=== PATIENT | male | born 1955 | race Caucasian/White ===

== ENCOUNTER 2019-12-16 00:52 | Day surgery (SDC) | payer MEDICARE, SELFPAY ==
[2019-12-04 14:25] VITALS: BMI 36.6
[2019-12-16 07:25] VITALS: BP 140/71; PULSE 102; RESP 18; TEMP 36.1; O2SAT 98
[2019-12-16 07:26] LABS: Glucose Point of Care 133 (65-105)
--- NOTE | 2019-12-16 07:28 | WPDANESEPPF ---
Anes - Initial Pre Proc Eval Procedure: Operation Date: 12/16/19 08:30 Proposed Procedures p Screening Colonoscopy - Sadiq Julio MD Date/Time: 12/16/19 07:28 Surgeon: Sadiq Julio MD Pre Op Diagnosis: Neoplasm Screening Patient Data Age: 64 Gender: M Height: 1.96 m Weight: 141.7 kg Last Vital Signs Temp 36.1 C L 12/16/19 07:25 Pulse 102 H 12/16/19 07:25 Resp 18 12/16/19 07:25 BP 140/71 12/16/19 07:25 Pulse Ox 98 12/16/19 07:25 Allergies Allergy/AdvReac Type Severity Reaction Status Date / Time Penicillins Allergy Unknown Rash Verified 12/04/19 14:14 Home Medications Medication Instructions Recorded Confirmed Type exenatide microspheres 2 mg SUBCUT Q7D 09/02/19 12/04/19 History glimepiride 2 mg PO QID 09/02/19 12/04/19 History lorazepam 0.5 mg PO DAILY PRN 09/02/19 12/04/19 History metformin 2,000 mg PO DAILY 09/02/19 12/04/19 History ondansetron 8 mg PO Q6H PRN 09/02/19 12/04/19 History sitagliptin 100 mg PO DAILY 09/02/19 12/04/19 History rosuvastatin 20 mg tablet 20 mg PO DAILY #90 tablet 09/23/19 12/04/19 Rx cyclobenzaprine 10 mg tablet 10 mg PO TID PRN #90 tablet 10/07/19 12/04/19 Rx metoprolol succinate 25 mg 25 mg PO DAILY #90 tablet 11/11/19 12/04/19 Rx tablet,extended release 24 hr levothyroxine 25 mcg tablet 25 mcg PO DAILY #90 tablet 12/01/19 12/04/19 Rx peg 3350-electrolytes 236 240 ml PO Q10M #4000 ml 12/12/19 Rx gram-22.74 gram-6.74 gram-5.86 gram solution Laboratory Tests 12/16/19 07:24 POC Capillary Glucose 133 mg/dl H mg/dl (65-105) Patient hx anesthesia problems: none Family hx anesthesia problems: none PMFSH Past Medical History Medical History (Updated 12/16/19 @ 07:30 by Mulugeta Parikh MD) Anxiety Diabetes HTN (hypertension) Hypothyroidism Lymphoma, small lymphocytic non hodgkiins lymphoma dx 12/2018 Obesity Family History Family History (Updated 12/13/18 @ 09:06 by DOCTOR UNKNOWN) Mother Hypertension Father Family history of cardiovascular disease Grandparent Acute myocardial infarction Other Diabetes mellitus Social History Social History Smoking status: Never smoker Alcohol intake: current Anes - Eval Final PreProcedure Day of Procedure 12/16/19 07:28 Patient weight: obese Heart: regular rate and rhythm Lungs: clear to auscultation and normal air movement Airway: Mallampati scale class II Neurological: alert and oriented Last oral intake: >/= 8 hours ASA classification: III Emergent: no Anesthetic plan: proceed Anesthesia type and monitoring: general GIVS Informed Consent: The patient's anesthetic plan and its attendant risks and benefits were discussed with the patient/family/POA. Questions were solicited and answers provided to the satisfaction of the patient/family/POA.
[2019-12-16] MEDS: LACTATED RINGERS 1,000 ML 150 ML IV CONT (07:53)
--- NOTE | 2019-12-16 08:42 | PM.HPGS ---
History of Present Illness History of Present Illness Consent: Risks, benefits, and alternatives have been discussed and questions answered. Patient agrees to proceed with procedure. Chief complaint: Neoplasm Screening Narrative: Hunter Stone is a 64 year old male with history of polyps, last colonoscopy 6 years ago Review of Systems Constitutional: Constitutional: Denies headache(s) and Denies weakness Eyes: Eyes: Denies blurry vision ENT: Reports Normal hearing present, Denies headache(s) and Denies neck pain Cardiovascular: Cardiovascular: Denies chest pain and Denies dyspnea Respiratory: Respiratory: Denies dyspnea Gastrointestinal: Gastrointestinal: Reports no additional gastrointestinal complaints Genitourinary: Genitourinary: Denies dysuria Musculoskeletal: Musculoskeletal: Denies neck pain Integumentary/Breasts: Skin/Breast: Denies dry skin Neurologic: Reports Normal hearing present, Denies headache(s) and Denies weakness Psychiatric: Psychiatric: Denies anxiety Endocrine: Endocrine: Denies change in body appearance Hematologic/Lymphatic: Hematologic/Lymphatic: Denies easy bleeding Allergic/Immunologic: Allergic/Immunologic: Denies urticaria PMFSH Past Medical History Medical History (Updated 12/16/19 @ 08:43 by Sadiq Julio MD) Adenomatous colon polyp Anxiety Diabetes HTN (hypertension) Hypothyroidism Lymphoma, small lymphocytic non hodgkiins lymphoma dx 12/2018 Obesity Family History Family History (Updated 12/13/18 @ 09:06 by DOCTOR UNKNOWN) Mother Hypertension Father Family history of cardiovascular disease Grandparent Acute myocardial infarction Other Diabetes mellitus Social History Social History Smoking status: Never smoker Alcohol intake: current Meds Home Medications and Allergies Home Medications Medication Instructions Recorded Confirmed Type exenatide microspheres 2 mg SUBCUT Q7D 09/02/19 12/16/19 History glimepiride 2 mg PO QID 09/02/19 12/04/19 History lorazepam 0.5 mg PO DAILY PRN 09/02/19 12/04/19 History metformin 2,000 mg PO DAILY 09/02/19 12/16/19 History ondansetron 8 mg PO Q6H PRN 09/02/19 12/04/19 History sitagliptin 100 mg PO DAILY 09/02/19 12/04/19 History rosuvastatin 20 mg tablet 20 mg PO DAILY #90 tablet 09/23/19 12/04/19 Rx cyclobenzaprine 10 mg tablet 10 mg PO TID PRN #90 tablet 10/07/19 12/04/19 Rx metoprolol succinate 25 mg 25 mg PO DAILY #90 tablet 11/11/19 12/04/19 Rx tablet,extended release 24 hr levothyroxine 25 mcg tablet 25 mcg PO DAILY #90 tablet 12/01/19 12/16/19 Rx omega 7-xmu-xrm-fish oil [Fish Oil] 1 cap PO DAILY 12/16/19 12/16/19 History zolpidem 10 mg PO DAILY 12/16/19 12/16/19 History Allergies Allergy/AdvReac Type Severity Reaction Status Date / Time Penicillins Allergy Unknown Rash Verified 12/04/19 14:14 Vital Signs Vital Signs - 24 hr 12/16/19 07:25 Temperature 97.0 F L Pulse Rate 102 H Respiratory Rate 18 Blood Pressure 140/71 Pulse Oximetry 98 Exam Const: General: comfortable and no acute distress HENMT: General nose exam: Normal nares present Eyes: General: appearance normal, both eyes and all related structures Neck: Neck: no JVD Resp: Auscultation: clear to auscultation bilaterally Cardio: Rate: regular rate Rhythm: regular rhythm GI: Inspection: non-distended GI Palp: Yes Soft to palpation Skin: General skin exam: normal color Neuro: General: gait normal Speech: normal speech Extrem: General: normal to inspection Psych: Mental Status: mental status grossly normal Assessment and Plan Assessment and plan (1) Adenomatous colon polyp: Qualifiers: Colon location: unspecified part of colon Qualified Code(s): D12.6 - Benign neoplasm of colon, unspecified Code(s): D12.6 - Benign neoplasm of colon, unspecified Status: Acute Assessment and Plan: will proceed with colonoscopy (2) Diabetes: Qualifier
[2019-12-16 09:03] VITALS: BP 118/75; PULSE 93; RESP 20; O2SAT 96
[2019-12-16 09:13] VITALS: BP 130/84; PULSE 93; RESP 20; O2SAT 96
[2019-12-16 09:23] VITALS: BP 125/64; PULSE 85; RESP 20; O2SAT 98
== END 2019-12-16 09:38 | disposition home or self-care (01) ==
PROVIDERS: PCP Family Medicine; Visit Provider Internal Medicine Gastroenterology
PROC: 0DJD8ZZ Inspection of Lower Intestinal Tract, Via Natural or Artificial Opening Endoscopic (ICD-10-PCS; CPT 45378; principal; 2019-12-16 08:30)
DX: Z12.11 Encounter for screening for malignant neoplasm of colon (principal); K64.8 Other hemorrhoids; Z86.010 Personal history of colon polyps; I10 Essential (primary) hypertension; E11.9 Type 2 diabetes mellitus without complications; E03.9 Hypothyroidism, unspecified; C85.90 Non-Hodgkin lymphoma, unspecified, unspecified site; F41.9 Anxiety disorder, unspecified; Z79.84 Long term (current) use of oral hypoglycemic drugs; E66.9 Obesity, unspecified; Z68.37 Body mass index [BMI] 37.0-37.9, adult
CPT/HCPCS: G0105; J2704; J7120

== ENCOUNTER 2020-10-13 08:15 | Outpatient (CLI) | payer MEDICARE, SELFPAY ==
[2020-10-13 09:36] LABS: Potassium 4.6 mmol/L (3.4-5.0)
[2020-10-13 09:38] LABS: Hemoglobin A1C 6.7 % (<5.7)
[2020-10-13 09:45] LABS: Alanine Aminotransferase 28 U/L (4-50); Albumin Level 4.1 g/dL (3.5-5.1); Alkaline Phosphatase 68 U/L (38-126); Anion Gap 11 mmol/L (8-16); Aspartate Amino Transferase 26 U/L (17-59); Bilirubin,Total 0.6 mg/dL (0.2-1.3); Blood Urea Nitrogen 16 mg/dL (9-20); Carbon Dioxide 27 mmol/L (22-30); Chloride 101 mmol/L (98-107); Cholesterol 132 mg/dL (0-200); Estimated Glomerular Filt Rate > 60; Glucose 182 mg/dL (75-110); HDL Direct 40 mg/dL; Sodium 139 mmol/L (137-145); Triglycerides 217 mg/dL (<150)
[2020-10-13 09:48] LABS: LDL Cholesterol Direct 72 mg/dL
[2020-10-13 10:06] LABS: Prostate Specific Antigen 0.8 ng/mL (< OR = 4.0)
[2020-10-13 10:40] LABS: Folic Acid 16.1 ng/mL (2.76->20)
== END 2020-10-13 08:16 | disposition home or self-care (01) ==
PROVIDERS: PCP Family Medicine; Visit Provider Physician Assistant
DX: E11.69 Type 2 diabetes mellitus with other specified complication (principal); E66.01 Morbid (severe) obesity due to excess calories; E78.2 Mixed hyperlipidemia; I10 Essential (primary) hypertension; Z12.5 Encounter for screening for malignant neoplasm of prostate
CPT/HCPCS: 36415; 80053; 80061; 82607; 82746; 83036; 84153; 84443; G0103

== ENCOUNTER 2020-11-05 01:56 | Outpatient (CLI) | payer MEDICARE, SELFPAY ==
[2020-11-05 20:00] LABS: SARS-CoV-2 RNA PCR Negative
== END 2020-11-05 01:57 | disposition home or self-care (01) ==
LOC: ANHCOVIDDT 01:56
PROVIDERS: PCP Family Medicine; Visit Provider Surgery
DX: Z01.818 Encounter for other preprocedural examination (principal); Z20.828 Contact with and (suspected) exposure to other viral communicable diseases
CPT/HCPCS: 87635; C9803; U0003

== ENCOUNTER 2020-11-08 02:01 | Day surgery (SDC) | payer MEDICARE, SELFPAY ==
[2020-11-03 08:51] VITALS: BMI 39.5
--- NOTE | 2020-11-05 13:44 | WPDANESEPPF ---
Anes - Initial Pre Proc Eval Procedure: Operation Date: 11/08/20 14:00 Proposed Procedures p Removal Negro Cath - Hunter Silva DO Date/Time: 11/05/20 13:44 Surgeon: Hunter Silva DO Pre Op Diagnosis: Lymphoma Patient Data Age: 65 Gender: M Height: 1.93 m Weight: 147.45 kg Allergies Allergy/AdvReac Type Severity Reaction Status Date / Time Penicillins Allergy Unknown Rash Verified 11/03/20 08:31 Home Medications Medication Instructions Recorded Confirmed Type lorazepam 0.5 mg PO DAILY PRN 09/02/19 11/03/20 History cyclobenzaprine 10 mg tablet 10 mg PO TID PRN #90 tablet 10/07/19 11/03/20 Rx levothyroxine 25 mcg tablet 25 mcg PO DAILY #90 tablet 12/01/19 11/03/20 Rx omega 5-apv-zej-fish oil [Fish Oil] 1 cap PO DAILY 12/16/19 11/03/20 History exenatide microspheres 2 mg/0.85 2 mg SUBCUT Q7D #10.2 ml 12/18/19 11/03/20 Rx mL subcutaneous auto-injector ferrous sulfate 325 mg (65 mg 325 mg PO DAILY 04/16/20 11/03/20 History iron) tablet metformin 500 mg tablet,extended 2,000 mg PO DAILY #360 tablet 04/16/20 11/03/20 Rx release 24 hr mfumfgme-yia-zymxm acid 300 1 tablet PO DAILY 04/16/20 11/03/20 History mcg-lycopene 600 mcg-lutein 300 mcg tablet lancets 33 gauge #100 each 06/02/20 10/12/20 Rx rosuvastatin 20 mg tablet 20 mg PO DAILY #90 tablet 06/21/20 11/03/20 Rx sitagliptin 100 mg tablet 100 mg PO DAILY #90 tablet 07/09/20 11/03/20 Rx blood sugar diagnostic #100 each 09/08/20 10/12/20 Rx sildenafil (pulm.hypertension) 20 40 mg PO DAILY PRN #10 tablet 09/08/20 11/03/20 Rx mg tablet glimepiride 2 mg tablet 4 mg PO BID #360 tablet 10/12/20 11/03/20 Rx irbesartan 150 mg PO DAILY 12/16/20 12/16/20 History zolpidem 10 mg PO PRN PRN 11/03/20 11/03/20 History PMFSH Past Medical History Medical History Adenomatous colon polyp Anxiety Diabetes Erectile dysfunction Hyperlipidemia Hypothyroidism Hypothyroidism determined by thyroid function test Lymphoma, small lymphocytic non hodgkiins lymphoma dx 12/2018 Obesity Family History Family History Mother Hypertension Father Family history of cardiovascular disease Grandparent Acute myocardial infarction Other Diabetes mellitus Social History Social History Smoking status: Never smoker Alcohol intake: current Spiritual care concerns: No Anes - Eval Final PreProcedure Day of Procedure 11/05/20 13:44 Patient weight: obese Heart: regular rate and rhythm Lungs: clear to auscultation and normal air movement Airway: Mallampati scale class II Neurological: alert and oriented Last oral intake: >/= 8 hours ASA classification: III Emergent: no Anesthetic plan: proceed Anesthesia type and monitoring: general GIVS and standard monitoring Informed Consent: The patient's anesthetic plan and its attendant risks and benefits were discussed with the patient/family/POA. Questions were solicited and answers provided to the satisfaction of the patient/family/POA.
--- NOTE | 2020-11-08 13:11 | PM.IMHP ---
H&P: HPI History of Present Illness Date/Time: 11/08/20 13:11 Chief Complaint: non hodgkins lymphoma Narrative: Hunter Stone is a 65 year old male who presents for Port removal. He previously underwent treatment for non Hodgkins lymphoma. He has been clear of any signs of cancer for a year. Review of Systems Review of Systems: All systems reviewed & are unremarkable except as noted in HPI and below Constitutional: Constitutional: Denies chills, Denies fever(s), Denies headache(s) and Denies weight loss Eyes: Eyes: Denies change in vision ENT: Denies dizziness, Denies headache(s), Denies neck mass and Denies throat swelling Cardiovascular: Cardiovascular: Denies chest pain, Denies lightheadedness and Denies dyspnea Respiratory: Respiratory: Denies cough, Denies dyspnea and Denies wheezing Gastrointestinal: Gastrointestinal: Denies abdominal pain, Denies change in bowel habits, Denies nausea and Denies vomiting Genitourinary: Genitourinary: Denies hematuria and Denies dysuria Musculoskeletal: Musculoskeletal: Reports as per HPI Integumentary/Breasts: Skin/Breast: Reports as per HPI Neurologic: Denies dizziness and Denies headache(s) Allergic/Immunologic: Allergic/Immunologic: Denies throat swelling and Denies wheezing PMFSH Past Medical History Medical History Adenomatous colon polyp Anxiety Diabetes Erectile dysfunction Hyperlipidemia Hypothyroidism Hypothyroidism determined by thyroid function test Lymphoma, small lymphocytic non hodgkiins lymphoma dx 12/2018 Obesity Family History Family History Mother Hypertension Father Family history of cardiovascular disease Grandparent Acute myocardial infarction Other Diabetes mellitus Social History Social History Smoking status: Never smoker Alcohol intake: current Alcohol use details: 2 DRINKS PER MONTH Living arrangements: with family Spiritual care concerns: No Meds Home Medications and Allergies Home Medications Medication Instructions Recorded Confirmed Type lorazepam 0.5 mg PO DAILY PRN 09/02/19 11/03/20 History cyclobenzaprine 10 mg tablet 10 mg PO TID PRN #90 tablet 10/07/19 11/03/20 Rx levothyroxine 25 mcg tablet 25 mcg PO DAILY #90 tablet 12/01/19 11/03/20 Rx omega 7-sue-vbv-fish oil [Fish Oil] 1 cap PO DAILY 12/16/19 11/03/20 History exenatide microspheres 2 mg/0.85 2 mg SUBCUT Q7D #10.2 ml 12/18/19 11/03/20 Rx mL subcutaneous auto-injector ferrous sulfate 325 mg (65 mg 325 mg PO DAILY 04/16/20 11/03/20 History iron) tablet metformin 500 mg tablet,extended 2,000 mg PO DAILY #360 tablet 04/16/20 11/03/20 Rx release 24 hr axpgcvds-eit-cjkug acid 300 1 tablet PO DAILY 04/16/20 11/03/20 History mcg-lycopene 600 mcg-lutein 300 mcg tablet lancets 33 gauge #100 each 06/02/20 10/12/20 Rx rosuvastatin 20 mg tablet 20 mg PO DAILY #90 tablet 06/21/20 11/03/20 Rx sitagliptin 100 mg tablet 100 mg PO DAILY #90 tablet 07/09/20 11/03/20 Rx blood sugar diagnostic #100 each 09/08/20 10/12/20 Rx sildenafil (pulm.hypertension) 20 40 mg PO DAILY PRN #10 tablet 09/08/20 11/03/20 Rx mg tablet glimepiride 2 mg tablet 4 mg PO BID #360 tablet 10/12/20 11/03/20 Rx irbesartan 150 mg PO DAILY 11/03/20 11/03/20 History zolpidem 10 mg PO PRN PRN 11/03/20 11/03/20 History Allergies Allergy/AdvReac Type Severity Reaction Status Date / Time Penicillins AdvReac Unknown UNKNOWN Verified 11/08/20 13:15 CHILD Exam Const: General: no acute distress and alert Orientation/consciousness: patient oriented x3 HENMT: Head: normocephalic and atraumatic Ears: hearing grossly normal bilaterally General nose exam: Normal nares present Mouth: Yes Normal oral and palatal mucosa present Eyes: Periorbital: periorbital findings normal Sclera: sclerae norm
[2020-11-08 13:13] VITALS: BP 115/67; PULSE 95; RESP 20; TEMP 35.4; O2SAT 99
--- NOTE | 2020-11-08 13:15 | WPDHPUPDATE1 ---
History and Physical Update Update Date/Time: 11/08/20 13:15 History and Physical has been reviewed, including an updated exam of the patient. There are NO changes in the patient's condition. Risks, benefits, and alternatives have been discussed and questions answered. Patient agrees to proceed with procedure.
[2020-11-08 13:39] VITALS: BP 126/68; PULSE 91; RESP 20; O2SAT 97
[2020-11-08] MEDS: LIDO 1%/EPINEPHRINE 1:100,000 20 ML VIAL INFILTRATE (13:42)
[2020-11-08 13:49] VITALS: BP 126/66; PULSE 88; RESP 20; O2SAT 97
[2020-11-08 13:58] VITALS: BP 128/65; PULSE 90; RESP 20; O2SAT 98
--- NOTE | 2020-11-08 14:06 | P.OP_ITS ---
Procedure Note - Detailed Date of procedure: 11/08/20 Pre-op diagnosis: Lymphoma Post-op diagnosis: same Procedure performed: Removal of Port-A-Cath Description of procedure: * Procedure as well as risks, benefits, and alternatives were discussed with the patient. Written consent was obtained and placed in chart prior to procedure. Patient was brought back to surgical suite, was placed supine on operating table, and chest area was prepped and draped in sterile fashion using chlorhexidine prep. Time-out was done to confirm patient and procedure. 1% lidocaine with epinephrine was infiltrated locally directly over the port. a 3 cm transverse incision was made over the port using a 15 blade scalpel. Electrocautery was used for hemostasis and for dissection down to the port housing. The port was carefully freed up cir cumferentially and sutures holding it in place were removed. This freed up the port completely and it was able to be delivered through the incision. A 3-0 Vicryl iqedvv-og-ykdys suture was placed along the catheter tract. And the catheter tubing was carefully withdrawn until it was completely removed. The port and tubing was intact. Pressure was held at the neck at the insertion site for 5 minutes. Hemostasis appeared adequate. The 3 0 Vicryl suture was tied down in place, and then the deep dermis was also reapproximated using 3 0 Vicryl simple interrupted sutures. Skin was approximated using 4 Monocryl running subcuticular suture, and Exofin glue was applied on top. The patient was transferred to recovery. Anesthesia: local (1% lidocaine with epinephrine) Surgeon: Hunter Silva DO Estimated blood loss (mL): 2 Complications: No immediate complications Condition: stable Disposition: same day Findings: * This is a 65-year-old man who has completed a course of chemotherapy for non-Hodgkin's lymphoma. Right IJ Port-A-Cath was removed under local anesthetic. The entire port with the catheter tip intact was removed and sent to pathology for gross only. Patient tolerated procedure well.
[2020-11-08 14:09] VITALS: BP 126/71; PULSE 91; RESP 16
== END 2020-11-08 14:25 | disposition home or self-care (01) ==
PROVIDERS: PCP Family Medicine; Visit Provider Surgery
PROC: (CPT 36589; principal; 2020-11-08 14:00)
DX: Z45.2 Encounter for adjustment and management of vascular access device (principal); Z85.72 Personal history of non-Hodgkin lymphomas; E11.9 Type 2 diabetes mellitus without complications; E78.5 Hyperlipidemia, unspecified; F41.9 Anxiety disorder, unspecified; E03.9 Hypothyroidism, unspecified; E66.9 Obesity, unspecified; Z68.39 Body mass index [BMI] 39.0-39.9, adult; Z79.84 Long term (current) use of oral hypoglycemic drugs
CPT/HCPCS: 36590; 88300

== ENCOUNTER 2021-01-20 13:32 | Outpatient (CLI) | payer MEDICARE, SELFPAY | END 2021-01-20 13:33 | disposition home or self-care (01) | PROVIDERS: PCP Family Medicine | DX: Z23 Encounter for immunization (principal) | CPT/HCPCS: 0001A; 91300 ==

== ENCOUNTER 2021-02-10 13:31 | Outpatient (CLI) | payer MEDICARE, SELFPAY | END 2021-02-10 13:32 | disposition home or self-care (01) | LOC: ANHCOVIDVC 13:31 | PROVIDERS: PCP Family Medicine | DX: Z23 Encounter for immunization (principal) | CPT/HCPCS: 0002A; 91300 ==

== ENCOUNTER 2021-04-23 12:03 | Emergency (ER) | payer MEDICARE, SELFPAY ==
[2021-04-23 12:13] VITALS: BP 141/67; PULSE 98; RESP 24; TEMP 36.4; O2SAT 99
--- NOTE | 2021-04-23 12:27 | ED.SKABFB ---
HPI - Skin/Abscess/Foreign Bdy General Chief complaint: Skin/Abscess/Foreign Body Stated complaint: Rash Source: patient and RN notes reviewed Limitations: no limitations History of Present Illness HPI narrative: The obese patient, who is on several meds including sulfonylureas, presents with skin eruption. Patient notes shorter 1-2 history of right waist band skin eruption, that his [who had shingles before], advised to come in. No fever, discharge, redness/streaking, prior zoster, significant prodrome; symptoms are mild, worse with scratching Related Data Home Medications Medication Instructions Recorded Confirmed lorazepam 0.5 mg PO DAILY PRN 09/02/19 11/08/20 omega 8-ifn-hmu-fish oil [Fish Oil] 1 cap PO DAILY 12/16/19 04/23/21 xonityee-nsy-qkpes acid 300 1 tablet PO DAILY 04/16/20 04/23/21 mcg-lycopene 600 mcg-lutein 300 mcg tablet Allergies Allergy/AdvReac Type Severity Reaction Status Date / Time Penicillins AdvReac Unknown UNKNOWN Verified 11/08/20 13:15 CHILD Review of Systems Review of Systems: Narrative: General/Constitutional: No weight loss,fever Eyes: N0: Redness,discharge Ears/Nose/Throat: No: Epistaxis,ear discharge Respiratory: Denies: Hemoptysis Gastrointestinal: No Vomiting, Bleeding-rectal Skin: No Lumps, REPORTS eruption Neurologic: No Focal Weakness,Sz Hematologic: Denies: Petechiae/Purpura Psychiatric: No: Suicida ideationl All Other Systems: Reviewed and Negative [facility] Past Medical History Medical History Adenomatous colon polyp Anxiety Diabetes Erectile dysfunction Hyperlipidemia Hypothyroidism Hypothyroidism determined by thyroid function test Lymphoma, small lymphocytic non hodgkiins lymphoma dx 12/2018 Obesity Family History Family History Mother Hypertension Father Family history of cardiovascular disease Grandparent Acute myocardial infarction Other Diabetes mellitus Social History Social History Smoking status: Never smoker Alcohol intake: current Gender identity (if verbalized by the patient): Male Spiritual care concerns: No Comments At time of signature, agree with nursing past medical, surgical, social and family history. There is no relevant family history pertinent to the presenting complaint Exam Narrative: Exam Narrative: General Appearance: Obese/well nourished, Cooperative, Normocephalic, Conjunctiva clear Skin: Unilateral, classic dewdrop, papular vesicular eruption on right waistline Ear: External ear normal Nose: Normal nose, Nare clear Mouth/Throat: Normal appearing Neck Exam: Supple Respiratory: Airway patent, No respiratory distress Musculoskeletal: Moves all extremities, Non tender Neurological: A&O x3, Normal affect Course Vital Signs Vital signs: Vital Signs Temperature 97.6 F 04/23/21 12:13 Pulse Rate 98 04/23/21 12:13 Respiratory Rate 24 H 04/23/21 12:13 Blood Pressure 141/67 H 04/23/21 12:13 Pulse Oximetry 99 04/23/21 12:13 Temperature 97.6 F 04/23/21 12:13 Pulse Rate 98 04/23/21 12:13 Respiratory Rate 24 H 04/23/21 12:13 Blood Pressure 141/67 H 04/23/21 12:13 Pulse Oximetry 99 04/23/21 12:13 Discharge Plan Discharge Clinical Impression: Pruritic condition Herpes zoster Qualifiers: Herpes zoster complications: without complications Qualified Code(s): B02.9 - Zoster without complications Patient Disposition: Home, Self-Care Condition: Stable Instructions: Shingles (ED) Prescriptions: New valacyclovir [Valtrex] 1 gram tablet 1,000 mg PO TID Qty: 20 RF: 0 acetaminophen-codeine 300-30 mg tablet 1 - 2 tablet PO HS PRN (Reason: pain) Qty: 10 RF: 0 No Action lorazepam 0.5 mg Tablet 0.5 mg PO DAILY PRN (Reason: Anxiety) RF: 0 Centrum Silver Men 300
== END 2021-04-23 12:35 | disposition home or self-care (01) ==
PROVIDERS: Emergency Provider Emergency Medicine; PCP Internal Medicine
DX: B02.9 Zoster without complications (principal); F41.9 Anxiety disorder, unspecified; E11.9 Type 2 diabetes mellitus without complications; E78.5 Hyperlipidemia, unspecified; E03.9 Hypothyroidism, unspecified; Z85.72 Personal history of non-Hodgkin lymphomas
CPT/HCPCS: 99213; G0463

== ENCOUNTER 2021-05-12 10:34 | Outpatient (CLI) | payer MEDICARE, SELFPAY ==
[2021-05-12 11:46] LABS: Alanine Aminotransferase 21 U/L (4-50); Albumin Level 4.5 g/dL (3.5-5.1); Alkaline Phosphatase 74 U/L (38-126); Anion Gap 11 mmol/L (8-16); Aspartate Amino Transferase 23 U/L (17-59); Bilirubin,Total 0.4 mg/dL (0.2-1.3); Blood Urea Nitrogen 17 mg/dL (9-20); Calcium 9.3 mg/dL (8.4-10.2); Carbon Dioxide 27 mmol/L (22-30); Chloride 102 mmol/L (98-107); Cholesterol 138 mg/dL (0-200); Estimated Glomerular Filt Rate > 60; Glucose 203 mg/dL (75-110); HDL Direct 45 mg/dL; Potassium 4.4 mmol/L (3.4-5.0); Sodium 140 mmol/L (137-145); Triglycerides 183 mg/dL (<150)
[2021-05-12 11:47] LABS: Hemoglobin A1C 8.2 % (<5.7)
[2021-05-12 11:57] LABS: LDL Cholesterol Direct 61 mg/dL
[2021-05-12 12:31] LABS: Creatinine Urine 140.4 mg/dL
[2021-05-12 12:36] LABS: MALB Creatinine Ratio 16.2 mg/g (0-30); Microalbumin Urine Random 22.8 mg/L (0-16.7)
== END 2021-05-12 10:35 | disposition home or self-care (01) ==
LOC: ANHLAB 10:36
PROVIDERS: PCP Internal Medicine; Visit Provider Internal Medicine
DX: E11.9 Type 2 diabetes mellitus without complications (principal); E03.9 Hypothyroidism, unspecified; E53.8 Deficiency of other specified B group vitamins
CPT/HCPCS: 36415; 80053; 80061; 82043; 82607; 83036; 84443

== ENCOUNTER 2022-07-04 10:37 | Outpatient (CLI) | payer MEDICARE, SELFPAY ==
[2022-07-04 20:49] LABS: Cholesterol 128 mg/dL (0-200); HDL Direct 33 mg/dL; Triglycerides 193 mg/dL (<150)
[2022-07-04 21:01] LABS: LDL Cholesterol Direct 56 mg/dL
== END 2022-07-04 10:38 | disposition home or self-care (01) ==
PROVIDERS: PCP Family Medicine; Visit Provider Family Medicine
DX: E78.5 Hyperlipidemia, unspecified (principal); Z12.5 Encounter for screening for malignant neoplasm of prostate; E03.9 Hypothyroidism, unspecified
CPT/HCPCS: 36415; 80061; 84153; 84443; G0103

== ENCOUNTER 2022-07-26 20:34 | Observation (INO) | payer MEDICARE, SELFPAY ==
[2022-07-26] VITALS (20 sets, daily range): BP systolic 144–177; BP diastolic 66–91; PULSE 71–89; RESP 13–20; TEMP 36.6; O2SAT 95–100
--- NOTE | ~2022-07-26 | XR_ITS ---
XR chest 2V DATE: 07/26/2022 21:33 INDICATION: Midsternal chest pressure. Acid reflux. History of diabetes. TECHNIQUE: PA and lateral views COMPARISON: 06/30/2019 CT chest FINDINGS: Normal heart size. No hilar or mediastinal enlargement. No pulmonary infiltrate or consolid ation, pleural effusion or pulmonary vascular congestion or pneumothorax. Degenerative spurring of the thoracic spine. IMPRESSION: No active cardiopulmonary disease Reviewed, dictated and finalized at location A.
--- NOTE | 2022-07-26 20:56 | ECG_ITS ---
Measurements Intervals [place] Rate: 74 P: 26 ME: 187 QRS: 50 QRSD: 90 T: 21 QT: 402 QTc: 447 Interpretive Statements SINUS RHYTHM WITH MARKED SINUS ARRHYTHMIA NORMAL ECG COMPARED TO ECG 06/29/2019 15:42:40 SINUS RHYTHM NOW PRESENT SINUS ARRHYTHMIA NOW PRESENT Electronically Signed On 07-27-2022 7:13:13 CDT by Vasu Guerrero D.O.
[2022-07-26 21:08] LABS: Basophils Absolute Auto 0.1 K/mm3 (0.0-0.1); Basophils Percent Auto 0.5 % (0.2-1.2); Eosinophils Percent Auto 0.3 % (0-4.4); Hematocrit 45.5 % (42.0-52.0); Hemoglobin 14.7 g/dL (14.0-18.0); Immature Granulocyte Absolute 0.06 K/mm3 (0.00-0.031); Immature Granulocyte Percent A 0.5 % (0-0.5); Lymphocytes Absolute Auto 1.87 K/mm3 (0.9-3.2); Lymphocytes Percent Auto 16.5 % (18.3-44.2); Mean Corpuscular HGB Conc 32.3 g/dl (32-36); Mean Corpuscular Hemoglobin 28.5 pg (26-34); Mean Corpuscular Volume 88.2 fl (80-100); Mean Platelet Volume 8.9 fl (7.4-10.4); Monocytes Absolute Auto 0.7 K/mm3 (0.1-0.6); Monocytes Percent Auto 6.4 % (2.6-8.5); Neutrophils Absolute Auto 8.6 K/mm3 (1.3-6.7); Neutrophils Percent Auto 75.8 % (45.5-73.1); Platelet Count Result 227 k/mm3 (150-375); Red Blood Count 5.16 M/mm3 (4.6-6.20); Red Cell Distribution Width 15.1 % (11.5-14.5); White Blood Count 11.3 K/mm3 (4.5-10.0)
[2022-07-26 21:25] LABS: Prothrombin Time 12.8 Seconds (11.1-14.7)
[2022-07-26 21:26] LABS: Partial Thromboplastin Time 25.6 SECONDS (22.3-36.8)
[2022-07-26 21:27] LABS: Alanine Aminotransferase 23 U/L (6-50); Albumin Level 4.7 g/dL (3.5-5.1); Alkaline Phosphatase 102 U/L (38-126); Anion Gap 12 mmol/L (8-16); Aspartate Amino Transferase 26 U/L (17-59); Bilirubin,Total 0.7 mg/dL (0.2-1.3); Blood Urea Nitrogen 20 mg/dL (9-20); Calcium 9.7 mg/dL (8.4-10.2); Carbon Dioxide 26 mmol/L (22-30); Chloride 99 mmol/L (98-107); Estimated CRCL calculation 105 ml/min; Estimated Glomerular Filt Rate > 60; Glucose 243 mg/dL (65-110); Lipase 49 U/L (23-300); Potassium 4.3 mmol/L (3.4-5.0); Sodium 137 mmol/L (137-145)
[2022-07-26 21:39] LABS: Troponin I < 0.012 ng/mL (0.000-0.034)
--- NOTE | 2022-07-26 22:41 | ED.GENADULT ---
HPI - General Adult General Chief complaint: Unspecified Stated complaint: vomiting Time Seen by Provider: 07/26/22 21:55 History of Present Illness HPI narrative: Patient is a 66-year-old male with a history of hypertension, diabetes, hyperlipidemia presenting with epigastric pain. Patient states that he was feeling well today until right before dinner when he started having heartburn. He took Tums and then ate part of his dinner. Patient states he then felt like a chunk of food got stuck in the middle of his chest. States that it feels like there is pressure in his esophagus. Patient had an episode of vomiting but the feeling of something being stuck in his throat continued. States that he vomited another chunk of food up just prior to coming in for evaluation. Endorses associated hiccups and belching. He denies headache, lightheadedness, chest pain, shortness of breath, palpitations, diarrhea, constipation, leg swelling. Related Data Home Medications Medication Instructions Recorded Confirmed hpqudfwr-zgw-qdkdt acid 300 1 tablet PO DAILY 04/16/20 07/27/22 mcg-lycopene 600 mcg-lutein 300 mcg tablet (Centrum Silver Men) ferrous sulfate 325 mg (65 mg 325 mg PO DAILY 05/11/21 07/27/22 iron) tablet mecobalamin (vitamin B12) 1,000 1,000 mcg PO DAILY 05/11/21 07/27/22 mcg chewable tablet glimepiride 4 mg tablet 4 mg PO DAILY 07/27/22 07/27/22 zolpidem 10 mg tablet 10 mg PO HS 07/27/22 07/27/22 Allergies Allergy/AdvReac Type Severity Reaction Status Date / Time Penicillins AdvReac Unknown UNKNOWN Verified 07/27/22 14:51 CHILD Review of Systems Review of Systems: All systems reviewed & are unremarkable except as noted in HPI and below PMFSH Past Medical History Medical History (Updated 07/27/22 @ 16:04 by Lindsay Watson PA-C) Abnormal CBC Acute bacterial sinusitis Adenomatous colon polyp Anxiety Atypical nevi Diabetes Erectile dysfunction Hyperlipidemia Hypothyroidism Hypothyroidism determined by thyroid function test Lymphoma, small lymphocytic non hodgkiins lymphoma dx 12/2018 Obesity Shingles Tachycardia Type 2 diabetes mellitus Family History Family History Mother Hypertension Cancer Depression Anxiety Heart disease Thyroid disorder Father Family history of cardiovascular disease Cancer Grandparent Acute myocardial infarction Cancer Alcoholism Heart disease Other Diabetes mellitus Social History Social History Smoking status: Never smoker Alcohol intake: never Alcohol use details: 2 DRINKS PER MONTH Substance use: never Substance use type: does not use Gender identity (if verbalized by the patient): Male Sexual Orientation (if Verbalized by the Patient): Straight or Heterosexual Spiritual care concerns: No Exam Narrative: GENERAL: Well-appearing, well-nourished, and in no acute distress. HEAD: Normocephalic, atraumatic. EYES: PERRLA and EOMI. ENT: Nares clear, no rhinorrhea or epistaxis. Mucous membranes moist. NECK: Supple. CHEST: Clear to auscultation. No respiratory distress. HEART: Regular rate and rhythm. No murmur heard. Normal peripheral pulses. ABDOMEN: mild epigastric tenderness, Soft, nondistended, normal active bowel sounds. EXTREMITIES: Normal range of motion. No edema. SKIN: Warm, dry, no rash. NEURO: No focal deficits. Alert and oriented x3. PSYCH: Normal mood and affect. Course Course Emergency Course: Patient is a 66-year-old male with history as above presenting with epigastric pain and vomiting. Patient is hypertensive, otherwise vitals are within normal limits. Patient is nontoxic, mildly distressed due to vomiting. Exam otherwise remarkable for the above. Will trial glucagon for food bolus. Chest x-ray with no acute abnormalities. EKG per my interpretation shows normal sinus rhythm, nor
[2022-07-26] MEDS: GLUCAGON FOR INJ 1 MG VIAL IV PUSH (23:00)
[2022-07-26 23:25] LABS: Troponin I < 0.012 ng/mL (0.000-0.034)
[2022-07-26] MEDS: FAMOTIDINE 20 MG/2 ML VIAL IV PUSH (23:40)
[2022-07-27] VITALS (13 sets, daily range): BP systolic 129–175; BP diastolic 43–88; PULSE 78–98; RESP 16–25; TEMP 36.1–36.6; O2SAT 97–100; BMI 41.3
--- NOTE | 2022-07-27 00:22 | PM.IMHP ---
H&P: HPI History of Present Illness Date/Time: 07/27/22 00:22 Chief Complaint: DYSPHAGIA Narrative: This is a 66-year-old male with past medical history significant for type 2 diabetes mellitus, hypothyroidism, GERD, dyslipidemia, benign prostatic hyperplasia, morbid obesity. Patient presents to the emergency room after having episode of dysphagia difficulty with food at dinner time had vomited of previously swallowed food and pain localized to the epigastric area with radiation to the retrosternal area. Patient denies any prior episodes of dysphagia or odynophagia he has been his usual state of health up until this, denies any nausea, vomiting, abdominal pain, diarrhea, weight loss. patient is able to swallow his own saliva. Preliminary workup has been essentially nonrevealing. Patient is being placed on observation for further evaluation management and treatment. Review of Systems Review of Systems: Dysphagia Constitutional: Constitutional: Denies chills, Denies fever(s), Denies malaise, Denies night sweats, Denies poor appetite, Denies weakness and Denies weight loss Eyes: Eyes: Denies change in vision ENT: Reports dysphagia, Denies vertigo, Denies dizziness and Denies odynophagia Cardiovascular: Cardiovascular: Denies chest pain, Denies irregular heart rhythm, Denies lightheadedness, Denies palpitations and Denies dyspnea on exertion Respiratory: Respiratory: Denies chest congestion, Denies excessive phlegm production, Denies pain on inspiration, Denies dyspnea and Denies dyspnea on exertion Gastrointestinal: Gastrointestinal: Reports abdominal pain (epigastric pain.), Denies dyspepsia, Denies heartburn, Denies diarrhea, Reports nausea and Reports vomiting Genitourinary: Genitourinary: Reports no additional male genitourinary complaints and Reports as per HPI Musculoskeletal: Musculoskeletal: Denies back pain, Denies arthralgias, Denies joint swelling and Denies muscle weakness Integumentary/Breasts: Skin/Breast: Denies rash Neurologic: Denies vertigo, Denies dizziness, Denies focal weakness and Denies Sensory deficit (Neuro) Psychiatric: Psychiatric: Reports no additional psychiatric complaints and Reports as per HPI Endocrine: Endocrine: Denies cold intolerance, Denies fatigue, Denies flushing, Denies heat intolerance, Denies polyphagia, Denies polydipsia and Denies palpitations Hematologic/Lymphatic: Hematologic/Lymphatic: Reports no additional hematologic/lymphatic complaints and Reports as per HPI Allergic/Immunologic: Allergic/Immunologic: Reports no additional allergic/immunologic complaints and Reports as per HPI FORMERLY [facility], [facility] Past Medical History Medical History (Updated 07/27/22 @ 16:04 by Lindsay Watson PA-C) Abnormal CBC Acute bacterial sinusitis Adenomatous colon polyp Anxiety Atypical nevi Diabetes Erectile dysfunction Hyperlipidemia Hypothyroidism Hypothyroidism determined by thyroid function test Lymphoma, small lymphocytic non hodgkiins lymphoma dx 12/2018 Obesity Shingles Tachycardia Type 2 diabetes mellitus Family History Family History Mother Hypertension Cancer Depression Anxiety Heart disease Thyroid disorder Father Family history of cardiovascular disease Cancer Grandparent Acute myocardial infarction Cancer Alcoholism Heart disease Other Diabetes mellitus Social History Social History Smoking status: Never smoker Alcohol intake: never Alcohol use details: 2 DRINKS PER MONTH Substance use: never Substance use type: does not use Gender identity (if verbalized by the patient): Male Sexual Orientation (if Verbalized by the Patient): Straight or Heterosexual Spiritual care concerns: No Meds Home Medications and Allergies Home Medications Medication Instructions Recorded Confirmed Type ibseponb-mzz-bokat acid 300 1 tabl
--- NOTE | 2022-07-27 02:00 | ADMGEN ---
This patient, Hunter Stone, was admitted to Medical Room 250-01. Patient/family oriented to hospital policies and general routines including ID bracelet, bed and alarms, visiting hours, pain management, procedures, bathroom and other care routines, personal items, smoking policy, room service/diet, and visiting hours. Information on how to activate the Rapid Response Team has been discussed. Patient/Family are encouraged to report perceived risks to care and to ask questions if they do not understand what they are told or what they should do.
[2022-07-27] MEDS: LORazepam INJ (*CRX) 2 MG/ML VIAL 1 MG IV PUSH (02:53)
[2022-07-27 03:30] LABS: Troponin I < 0.012 ng/mL (0.000-0.034)
--- NOTE | 2022-07-27 08:03 | WPDGICN ---
Assessment and Plan Assessment and plan (1) Dysphagia: Code(s): R13.10 - Dysphagia, unspecified Status: Acute Assessment and Plan: will proceed with urgent EGD, wonder if already passed bolus but still uncomfortable never had egd may need dilation based on findings (2) Food impaction of esophagus: Code(s): T18.128A - Food in esophagus causing other injury, initial encounter Status: Acute Assessment and Plan: urgent EGD (3) Primary hypertension: Code(s): I10 - Essential (primary) hypertension Status: Acute (4) Morbid obesity with BMI of 40.0-44.9, adult: Code(s): E66.01 - Morbid (severe) obesity due to excess calories; Z68.41 - Body mass index [BMI] 40.0-44.9, adult Status: Acute (5) Type 2 diabetes mellitus with morbid obesity: Code(s): E11.69 - Type 2 diabetes mellitus with other specified complication; E66.01 - Morbid (severe) obesity due to excess calories Status: Acute Assessment and Plan: on meds GI Consult Note Consult date/time: 07/27/22 08:03 Reason for consult: dysphagia, food bolus HPI: Hunter Stone is a 66 year old male with history of HTN, DM and here with food getting stuck last night. He says that had barbequeu and then unable to swallow anymore even water, finally decided to come to ER. He never had EG and says that only few occasions had difficulty swallowing solid but resolved after drinking and never had to come to hospital. Never had EGD, had colonoscopy by me in 2020 (previous history of polyps). He has discomfort in chest and now he is passing saliva at least but still sensation of something at his chest. Review of Systems Constitutional: Constitutional: Denies headache(s) and Denies weakness Eyes: Eyes: Denies blurry vision ENT: Reports Normal hearing present, Denies headache(s) and Denies neck pain Cardiovascular: Cardiovascular: Denies chest pain and Denies dyspnea Respiratory: Respiratory: Denies dyspnea Gastrointestinal: Gastrointestinal: Reports no additional gastrointestinal complaints Genitourinary: Genitourinary: Denies dysuria Musculoskeletal: Musculoskeletal: Denies neck pain Integumentary/Breasts: Skin/Breast: Denies dry skin Neurologic: Reports Normal hearing present, Denies headache(s) and Denies weakness Psychiatric: Psychiatric: Denies anxiety Endocrine: Endocrine: Denies change in body appearance Hematologic/Lymphatic: Hematologic/Lymphatic: Denies easy bleeding Allergic/Immunologic: Allergic/Immunologic: Denies urticaria PMFSH Past Medical History Medical History Abnormal CBC Acute bacterial sinusitis Adenomatous colon polyp Anxiety Atypical nevi Diabetes Erectile dysfunction Hyperlipidemia Hypothyroidism Hypothyroidism determined by thyroid function test Lymphoma, small lymphocytic non hodgkiins lymphoma dx 12/2018 Obesity Shingles Tachycardia Family History Family History Mother Hypertension Cancer Depression Anxiety Heart disease Thyroid disorder Father Family history of cardiovascular disease Cancer Grandparent Acute myocardial infarction Cancer Alcoholism Heart disease Other Diabetes mellitus Social History Social History Smoking status: Never smoker Alcohol intake: never Alcohol use details: 2 DRINKS PER MONTH Substance use: never Substance use type: does not use Gender identity (if verbalized by the patient): Male Sexual Orientation (if Verbalized by the Patient): Straight or Heterosexual Spiritual care concerns: No Meds Home Medications and Allergies Home Medications Medication Instructions Recorded Confirmed Type nwogtcij-ztb-dlyoa acid 300 1 tablet PO DAILY 04/16/20 07/27/22 History mcg-lycopene 600 mcg-lutein 300 mcg tablet (
[2022-07-27 11:44] LABS: Glucose Point of Care 257 mg/dl (65-105)
[2022-07-27] MEDS: LACTATED RINGERS 1,000 ML 150 ML IV CONT (14:58)
--- NOTE | 2022-07-27 14:58 | WPDANESEPPF ---
Anes - Initial Pre Proc Eval Procedure: Operation Date: 07/27/22 11:45 Proposed Procedures p Esophagogastroduodenoscopy - Sadiq Julio MD Date/Time: 07/27/22 14:58 Surgeon: Lindsay Watson PA-C Pre Op Diagnosis: Possible Food Impaction Patient Data Age: 66 Gender: M Height: 1.96 m Weight: 158.3 kg Last Vital Signs Temp 36.6 C 07/27/22 05:12 Pulse 98 07/27/22 14:40 Resp 22 H 07/27/22 14:40 BP 137/71 07/27/22 14:40 Pulse Ox 99 07/27/22 14:40 O2 Del Method Room Air 07/27/22 14:40 Allergies Allergy/AdvReac Type Severity Reaction Status Date / Time Penicillins AdvReac Unknown UNKNOWN Verified 07/27/22 14:51 CHILD Home Medications Medication Instructions Recorded Confirmed Type viutnkvj-mot-aztkd acid 300 1 tablet PO DAILY 04/16/20 07/27/22 History mcg-lycopene 600 mcg-lutein 300 mcg tablet (Centrum Silver Men) ferrous sulfate 325 mg (65 mg 325 mg PO DAILY 05/11/21 07/27/22 History iron) tablet mecobalamin (vitamin B12) 1,000 1,000 mcg PO DAILY 05/11/21 07/27/22 History mcg chewable tablet irbesartan 300 mg tablet 300 mg PO DAILY #90 tabs 11/30/21 07/27/22 Rx insulin degludec 100 unit/mL (3 10 unit (0.1 mL) subcut DAILY #3 mL 01/20/22 07/27/22 Rx mL) subcutaneous pen (Tresiba FlexTouch U-100 insulin) lancets 33 gauge (OneTouch Delica #100 ea 01/27/22 07/27/22 Rx Plus Lancet) pen needle, diabetic 32 gauge x #100 ea 02/28/22 07/27/22 Rx 5/32 (BD Marita 2nd Gen Pen Needle) pioglitazone 30 mg tablet 30 mg PO DAILY #90 tabs 04/25/22 07/27/22 Rx rosuvastatin 20 mg tablet 20 mg PO DAILY #90 tabs 05/09/22 07/27/22 Rx blood sugar diagnostic #100 ea 05/29/22 07/27/22 Rx levothyroxine 25 mcg tablet 25 mcg PO DAILY #90 tabs 06/22/22 07/27/22 Rx lorazepam 0.5 mg tablet 0.5 mg PO DAILY PRN Anxiety #30 06/23/22 07/27/22 Rx tabs metformin 500 mg tablet,extended 2,000 mg PO DAILY #120 tabs 06/29/22 07/27/22 Rx release 24 hr tamsulosin 0.4 mg capsule 0.4 mg PO DAILY #30 caps 07/06/22 07/27/22 Rx metoprolol succinate 25 mg 25 mg PO DAILY #90 tabs 07/10/22 07/27/22 Rx tablet,extended release 24 hr glimepiride 4 mg tablet 4 mg PO DAILY 07/27/22 07/27/22 History zolpidem 10 mg tablet 10 mg PO HS 07/27/22 07/27/22 History Laboratory Tests 07/26/22 07/26/22 07/26/22 21:00 21:00 21:00 WBC 11.3 K/mm3 H K/mm3 (4.5-10.0) RBC 5.16 M/mm3 M/mm3 (4.6-6.20) Hgb 14.7 g/dL g/dL (14.0-18.0) Hct 45.5 % % (42.0-52.0) MCV 88.2 fl fl (80-100) MCH 28.5 pg pg (26-34) MCHC 32.3 g/dl g/dl (32-36) RDW 15.1 % H % (11.5-14.5) Plt Count 227 k/mm3 k/mm3 (150-375) MPV 8.9 fl fl (7.4-10.4) Immature Gran % (Auto) 0.5 % % (0-0.5) Neut % (Auto) 75.8 % H % (45.5-73.1) Lymph % (Auto) 16.5 % L % (18.3-44.2) Vance % (Auto) 6.4 % % (2.6-8.5) Eos % (Auto) 0.3 % % (0-4.4) Baso % (Auto) 0.5 % % (0.2-1.2) Lymph # (Auto) 1.87 K/mm3 K/mm3 (0.9-3.2) Vance # (Auto) 0.7 K/mm3 H K/mm3 (0.1-0.6) Eos # (Auto) 0.0 K/mm3 K/mm3 (0-0.3) Baso # (Auto) 0.1 K/mm3 K/mm3 (0.0-0.1) Abs Immat Gran (auto) 0.06 K/mm3 H K/mm3 (0.00-0.031) Absolute Neuts (auto) 8.6 K/mm3 H K/mm3 (1.3-6.7) Absolute Nucleated RBC 0.0 K/mm3 K/mm3 (0.0-0.012) Nucleated RBC % 0.0 % % (0.0-0.2) PT 12.8 Seconds Seconds (11.1-14.7) INR 1.0 APTT 25.6 SECONDS SECONDS (22.3-36.8) Sodium 137 mmol/L mmol/L (137-145) Potassium 4.3 mmol/L mmol/L (3.4-5.0) Chloride 99 mmol/L mmol/L (98-107) Carbon Dioxide 26 mmol/L mmol/L (22-30) Anion Gap 12 mmol/L mmol/L (8-16) BUN 20 mg/dL mg/dL (9-20) Creatinine 1.00 mg/dL mg/dL (0.7-1.3) Es
[2022-07-27 15:19] LABS: Glucose Point of Care 247 mg/dl (65-105)
--- NOTE | 2022-07-27 15:59 | PM.DS ---
DS: Admitting Diagnosis Discharge Date 07/27/2022 Admitting Diagnosis dysphagia/food impaction DS: Discharge Diagnosis Discharge Diagnosis (1) Dysphagia: Code(s): R13.10 - Dysphagia, unspecified Status: Acute Assessment and Plan: Patient presented with dysphagia, endorsing a feeling of his food not going down all the way and endorsed vomiting up food bolus. EGD completed on 07/27/2022 which showed nonobstructing ring with localized inflammation and tear with no perforation from food bolus stasis. no evidence of retained food. Dilation deferred at time of EGD. Patient will follow-up for repeat EGD in 6 weeks to consider dilation at that time Symptoms improved and patient was able to tolerate a soft diet. Has been started on Protonix 40 mg daily and Carafate 1 g ACHS Will follow-up with GI as an outpatient (2) Food impaction of esophagus: Code(s): T18.128A - Food in esophagus causing other injury, initial encounter Status: Acute Assessment and Plan: please see above (3) Type 2 diabetes mellitus: Code(s): E11.9 - Type 2 diabetes mellitus without complications Status: Acute Assessment and Plan: last A1c 6.7 in March 2022 continue home regimen including Tresiba 10 units daily, metformin, pioglitazone encouraged to monitor blood sugars with meals and at bedtime and follow-up with PCP for review (4) Primary hypertension: Code(s): I10 - Essential (primary) hypertension Status: Acute Assessment and Plan: Blood pressures reviewed and were stable. Continue home antihypertensive (5) Lymphoma, small lymphocytic: Code(s): C83.00 - Small cell B-cell lymphoma, unspecified site Status: Acute Assessment and Plan: No acute issues during admission continue routine care DS: Summary Hospital Course Hospital Course: date of admission: 07/26/2022 date of discharge: 07/27/2022 Hunter Stone is a 66-year-old male with a history of lymphoma, type 2 diabetes mellitus, hypothyroidism, and hypertension who presented to the emergency department on 07/26/2022 with complaints of esophageal discomfort after feeling food stuck in his esophagus. On presentation to the ED, his vital signs were stable, he was afebrile, WBC 11.3, additional laboratory workup unremarkable, troponin negative, and chest x-ray showed no acute cardiopulmonary disease. he was admitted to the hospitalist service for for further evaluation and management was seen in consultation by Gastroenterology. Please see above for further details. His symptoms improved. EGD demonstrated esophageal ring. He was started on Protonix and Carafate and will follow-up in 6 weeks for reassessment. Patient was able to tolerate a soft diet which she will continue. Discussed worrisome signs and symptoms for which to return and he was educated on his medications. Given overall improvement, he was determined to no longer require inpatient care and was discharged in hemodynamically stable condition on 07/27/2022. Status at Discharge Functional status at discharge: independent ambulation Overall status at discharge: patient is progressing back to baseline Time Spent with Patient Time attestation: Total time spent providing and/or coordinating discharge services: Exam Narrative: General: obese well-appearing 66-year-old male, sitting up in bed, comfortable, NARD Neuro: awake, alert and oriented x4, speech clear, no focal neuro deficits noted HEENMT: normocephalic, atraumatic, EOMI, sclerae anicteric Respiratory: clear to auscultation bilaterally, nonlabored breathing Cardio: regular rate, regular rhythm with S1-S2 Abdomen: nondistended, normoactive bowel sounds, soft, nontender to palpation Extremities: no edema, erythema, or tenderness to palpation, DP pulses 2+ bilaterally Skin: no rashes or lesions, warm and dry Psych: appropriate mood and affect, judgment
[2022-07-27] MEDS: SUCRALFATE 1 GM TABLET PO (16:04)
[2022-07-27] MEDS: INSULIN ASPART (*BKC) 100 UNITS/ML SUB-Q (16:10)
[2022-07-27 16:11] LABS: Glucose Point of Care 247 mg/dl (65-105)
== END 2022-07-27 17:23 | disposition home or self-care (01) ==
LOC: ANHED 07-27 00:49 → ANH2MED 07-27 01:17
PROVIDERS: Internal Medicine Gastroenterology; Physician Assistant; Admitting Provider Internal Medicine; Emergency Provider Emergency Medicine; PCP Family Medicine; Visit Provider Internal Medicine
PROC: 0DJ08ZZ Inspection of Upper Intestinal Tract, Via Natural or Artificial Opening Endoscopic (ICD-10-PCS; CPT 43235; principal; 2022-07-27 11:45)
DX: K22.2 Esophageal obstruction (principal); R13.10 Dysphagia, unspecified; T18.128A Food in esophagus causing other injury, initial encounter; I10 Essential (primary) hypertension; E11.69 Type 2 diabetes mellitus with other specified complication; E66.01 Morbid (severe) obesity due to excess calories; Z68.41 Body mass index [BMI] 40.0-44.9, adult; E78.5 Hyperlipidemia, unspecified; R10.13 Epigastric pain; R11.10 Vomiting, unspecified; F41.9 Anxiety disorder, unspecified; E03.9 Hypothyroidism, unspecified; N40.0 Benign prostatic hyperplasia without lower urinary tract symptoms; K21.9 Gastro-esophageal reflux disease without esophagitis; R00.0 Tachycardia, unspecified; C83.00 Small cell B-cell lymphoma, unspecified site; Z79.84 Long term (current) use of oral hypoglycemic drugs; Z79.899 Other long term (current) drug therapy; Z82.49 Family history of ischemic heart disease and other diseases of the circulatory system; Z80.9 Family history of malignant neoplasm, unspecified; Z84.89 Family history of other specified conditions
CPT/HCPCS: 43235; 36415; 71046; 80053; 82948; 83690; 84484; 85025; 85610; 85730; 93005; 96374; 96375; 99285; A9270; G0378; J1610; J1815; J2060; J2704; J7120

== ENCOUNTER 2022-07-31 13:43 | Outpatient (CLI) | payer MEDICARE, SELFPAY ==
[2022-07-31 14:02] LABS: Hematocrit 42.6 % (42.0-52.0); Hemoglobin 13.9 g/dL (14.0-18.0); Mean Corpuscular HGB Conc 32.6 g/dl (32-36); Mean Corpuscular Hemoglobin 28.5 pg (26-34); Mean Corpuscular Volume 87.5 fl (80-100); Mean Platelet Volume 8.5 fl (7.4-10.4); Platelet Count Result 227 k/mm3 (150-375); Red Blood Count 4.87 M/mm3 (4.6-6.20); Red Cell Distribution Width 14.8 % (11.5-14.5); White Blood Count 8.2 K/mm3 (4.5-10.0)
== END 2022-07-31 13:44 | disposition home or self-care (01) ==
LOC: ANHLAB 13:45
PROVIDERS: PCP Family Medicine; Visit Provider Internal Medicine Cardiovascular Disease
DX: R00.0 Tachycardia, unspecified (principal); E03.9 Hypothyroidism, unspecified
CPT/HCPCS: 36415; 84443; 85027

== ENCOUNTER 2022-09-20 01:19 | Day surgery (SDC) | payer MEDICARE, SELFPAY ==
[2022-08-25 14:28] VITALS: BMI 40.8
--- NOTE | 2022-09-10 10:48 | SUR.PREOP ---
1035 CALLED PATIENT ABOUT THE DOCTOR'S UNAVAILABILITY FOR HIS PROCEDURE ON SUNDAY. INFORMED PATIENT TO RESUME NORMAL DIET AND THAT THE DOCTOR'S OFFICE WOULD CALL THE PATIENT TO RESCHEDULE. PATIENT VOICED UNDERSTANDING.
[2022-09-20 10:13] VITALS: BP 143/73; PULSE 82; RESP 18; TEMP 35.3; O2SAT 99; BMI 41.3
[2022-09-20] MEDS: LACTATED RINGERS 1,000 ML 150 ML IV CONT (10:33)
[2022-09-20 10:35] LABS: Glucose Point of Care 187 mg/dl (65-105)
--- NOTE | 2022-09-20 10:46 | WPDANESEPPF ---
Anes - Initial Pre Proc Eval Procedure: Operation Date: 09/20/22 11:30 Proposed Procedures p Esophagogastroduodenoscopy - Sadiq Julio MD Date/Time: 09/20/22 10:46 Surgeon: Sadiq Julio MD Pre Op Diagnosis: Esophageal Ring Patient Data Age: 66 Gender: M Height: 1.96 m Weight: 158.1 kg Last Vital Signs Temp 95.6 F L 09/20/22 10:13 Pulse 82 09/20/22 10:13 Resp 18 09/20/22 10:13 BP 143/73 H 09/20/22 10:13 Pulse Ox 99 09/20/22 10:13 O2 Del Method Room Air 09/20/22 10:13 Allergies Allergy/AdvReac Type Severity Reaction Status Date / Time Penicillins AdvReac Unknown UNKNOWN Verified 09/20/22 10:20 CHILD Home Medications Medication Instructions Recorded Confirmed Type virynzhg-yov-qkkct acid 300 1 tablet PO DAILY 04/16/20 09/20/22 History mcg-lycopene 600 mcg-lutein 300 mcg tablet (Centrum Silver Men) ferrous sulfate 325 mg (65 mg 325 mg PO DAILY 05/11/21 09/20/22 History iron) tablet mecobalamin (vitamin B12) 1,000 1,000 mcg PO DAILY 05/11/21 09/20/22 History mcg chewable tablet insulin degludec 100 unit/mL (3 10 unit (0.1 mL) subcut DAILY #3 mL 01/20/22 09/20/22 Rx mL) subcutaneous pen (Tresiba FlexTouch U-100 insulin) lancets 33 gauge (OneTouch Delica #100 ea 01/27/22 09/20/22 Rx Plus Lancet) pen needle, diabetic 32 gauge x #100 ea 02/28/22 09/20/22 Rx 5/32 (BD Marita 2nd Gen Pen Needle) pioglitazone 30 mg tablet 30 mg PO DAILY #90 tabs 04/25/22 09/20/22 Rx rosuvastatin 20 mg tablet 20 mg PO DAILY #90 tabs 05/09/22 09/20/22 Rx blood sugar diagnostic #100 ea 05/29/22 09/20/22 Rx levothyroxine 25 mcg tablet 25 mcg PO DAILY #90 tabs 06/22/22 09/20/22 Rx metformin 500 mg tablet,extended 2,000 mg PO DAILY #120 tabs 06/29/22 09/20/22 Rx release 24 hr metoprolol succinate 25 mg 25 mg PO DAILY #90 tabs 07/10/22 09/20/22 Rx tablet,extended release 24 hr pantoprazole 40 mg tablet,delayed 40 mg PO QAM #30 tabs 07/27/22 09/20/22 Rx release sucralfate 1 gram tablet 1 g PO ACHS #90 tabs 07/27/22 09/20/22 Rx zolpidem 10 mg tablet 10 mg PO HS 07/27/22 09/20/22 History glimepiride 4 mg tablet 4 mg PO DAILY #90 tabs 08/25/22 09/20/22 Rx sitagliptin phosphate 100 mg tablet 100 mg PO DAILY #90 tabs 08/25/22 09/20/22 Rx sildenafil (pulm.hypertension) 20 40 mg PO DAILY PRN sexual activity 09/01/22 09/20/22 Rx mg tablet #10 tabs tamsulosin 0.4 mg capsule 0.4 mg PO DAILY #30 caps 09/01/22 09/20/22 Rx irbesartan 300 mg tablet 300 mg PO DAILY #90 tabs 09/05/22 09/20/22 Rx lorazepam 0.5 mg tablet 0.5 mg PO DAILY PRN Anxiety #30 09/18/22 09/20/22 Rx tabs Laboratory Tests 09/20/22 10:32 POC Capillary Glucose 187 mg/dl H mg/dl (65-105) Patient hx anesthesia problems: none Family hx anesthesia problems: none Results Review: All pre-operative results and documents have been reviewed as part of the pre-operative evaluation. [facility] Past Medical History Medical History (Updated 08/04/22 @ 14:46 by Kaia Gunter MD) Abnormal CBC Acute bacterial sinusitis Adenomatous colon polyp Anxiety Atypical nevi Diabetes Erectile dysfunction Hyperlipidemia Hypothyroidism Hypothyroidism determined by thyroid function test Lymphoma, small lymphocytic non hodgkiins lymphoma dx 12/2018 Obesity Shingles Tachycardia Type 2 diabetes mellitus Family History Family History Mother Hypertension Cancer Depression Anxiety Heart disease Thyroid disorder Father Family history of cardiovascular disease Cancer Grandparent Acute myocardial infarction Cancer Alcoholism Heart disease Other Diabetes mellitus Social History Social History Smoking status: Never smoker Smokeless tobacco user: chewing tobacco Additional smoking assessment comments: former chewing tobacco, quit 20 years a
--- NOTE | 2022-09-20 11:10 | PM.HPGS ---
History of Present Illness History of Present Illness Consent: Risks, benefits, and alternatives have been discussed and questions answered. Patient agrees to proceed with procedure. Chief complaint: Esophageal Ring Narrative: Hunter Stone is a 66 year old male that required urgent EGD after food bolus, found to have ring with tear. He used ppi but ran out. Less dysphagia. Review of Systems Constitutional: Constitutional: Denies headache(s) and Denies weakness Eyes: Eyes: Denies blurry vision ENT: Reports Normal hearing present, Denies headache(s) and Denies neck pain Cardiovascular: Cardiovascular: Denies chest pain and Denies dyspnea Respiratory: Respiratory: Denies dyspnea Gastrointestinal: Gastrointestinal: Reports no additional gastrointestinal complaints Genitourinary: Genitourinary: Denies dysuria Musculoskeletal: Musculoskeletal: Denies neck pain Integumentary/Breasts: Skin/Breast: Denies dry skin Neurologic: Reports Normal hearing present, Denies headache(s) and Denies weakness Psychiatric: Psychiatric: Denies anxiety Endocrine: Endocrine: Denies change in body appearance Hematologic/Lymphatic: Hematologic/Lymphatic: Denies easy bleeding Allergic/Immunologic: Allergic/Immunologic: Denies urticaria PMFSH Past Medical History Medical History (Updated 08/04/22 @ 14:46 by Kaia Gunter MD) Abnormal CBC Acute bacterial sinusitis Adenomatous colon polyp Anxiety Atypical nevi Diabetes Erectile dysfunction Hyperlipidemia Hypothyroidism Hypothyroidism determined by thyroid function test Lymphoma, small lymphocytic non hodgkiins lymphoma dx 12/2018 Obesity Shingles Tachycardia Type 2 diabetes mellitus Family History Family History Mother Hypertension Cancer Depression Anxiety Heart disease Thyroid disorder Father Family history of cardiovascular disease Cancer Grandparent Acute myocardial infarction Cancer Alcoholism Heart disease Other Diabetes mellitus Social History Social History Smoking status: Never smoker Smokeless tobacco user: chewing tobacco Additional smoking assessment comments: former chewing tobacco, quit 20 years ago Alcohol intake: never Alcohol use details: rare Substance use: never Substance use type: does not use Living arrangements: with family Gender identity (if verbalized by the patient): Male Sexual Orientation (if Verbalized by the Patient): Straight or Heterosexual Spiritual care concerns: No Meds Home Medications and Allergies Home Medications Medication Instructions Recorded Confirmed Type mrabqpwn-rii-zwglg acid 300 1 tablet PO DAILY 04/16/20 09/20/22 History mcg-lycopene 600 mcg-lutein 300 mcg tablet (Centrum Silver Men) ferrous sulfate 325 mg (65 mg 325 mg PO DAILY 05/11/21 09/20/22 History iron) tablet mecobalamin (vitamin B12) 1,000 1,000 mcg PO DAILY 05/11/21 09/20/22 History mcg chewable tablet insulin degludec 100 unit/mL (3 10 unit (0.1 mL) subcut DAILY #3 mL 01/20/22 09/20/22 Rx mL) subcutaneous pen (Tresiba FlexTouch U-100 insulin) lancets 33 gauge (OneTouch Delica #100 ea 01/27/22 09/20/22 Rx Plus Lancet) pen needle, diabetic 32 gauge x #100 ea 02/28/22 09/20/22 Rx 5/32 (BD Marita 2nd Gen Pen Needle) pioglitazone 30 mg tablet 30 mg PO DAILY #90 tabs 04/25/22 09/20/22 Rx rosuvastatin 20 mg tablet 20 mg PO DAILY #90 tabs 05/09/22 09/20/22 Rx blood sugar diagnostic #100 ea 05/29/22 09/20/22 Rx levothyroxine 25 mcg tablet 25 mcg PO DAILY #90 tabs 06/22/22 09/20/22 Rx metformin 500 mg tablet,extended 2,000 mg PO DAILY #120 tabs 06/29/22 09/20/22 Rx release 24 hr metoprolol succinate 25 mg 25 mg PO DAILY #90 tabs 07/10/22 09/20/22 Rx tablet,extended release 24 hr pantoprazole 40 mg tablet,delayed 40 mg PO QAM #30 tabs 07/27/22 09/20/22 Rx rele
[2022-09-20 11:28] VITALS: BP 127/71; PULSE 70; RESP 22; O2SAT 98
[2022-09-20 11:38] VITALS: BP 127/71; PULSE 70; RESP 20; O2SAT 98
[2022-09-20 11:48] VITALS: BP 131/58; PULSE 67; RESP 20; O2SAT 98
== END 2022-09-20 11:53 | disposition home or self-care (01) ==
PROVIDERS: PCP Family Medicine; Visit Provider Internal Medicine Gastroenterology
PROC: 0DJ08ZZ Inspection of Upper Intestinal Tract, Via Natural or Artificial Opening Endoscopic (ICD-10-PCS; CPT 43235; principal; 2022-09-20 11:30)
DX: K22.2 Esophageal obstruction (principal); K29.50 Unspecified chronic gastritis without bleeding; E78.5 Hyperlipidemia, unspecified; E11.9 Type 2 diabetes mellitus without complications; E03.9 Hypothyroidism, unspecified; F41.9 Anxiety disorder, unspecified; Z85.72 Personal history of non-Hodgkin lymphomas; E66.01 Morbid (severe) obesity due to excess calories; Z68.41 Body mass index [BMI] 40.0-44.9, adult; Z87.891 Personal history of nicotine dependence; Z79.4 Long term (current) use of insulin; Z79.84 Long term (current) use of oral hypoglycemic drugs
CPT/HCPCS: 43239; 43249; 82948; 88305; J2704; J7120

== ENCOUNTER 2023-07-17 12:38 | Outpatient (CLI) | payer MEDICARE, SELFPAY ==
[2023-07-17 13:11] LABS: Basophils Absolute Auto 0.1 K/mm3 (0.0-0.1); Basophils Percent Auto 0.6 % (0.2-1.2); Eosinophils Absolute Auto 0.2 K/mm3 (0-0.3); Eosinophils Percent Auto 1.5 % (0-4.4); Hematocrit 49.2 % (42.0-52.0); Hemoglobin 16.3 g/dL (14.0-18.0); Immature Granulocyte Absolute 0.02 K/mm3 (0.00-0.031); Immature Granulocyte Percent A 0.2 % (0-0.5); Immature Platelet Fraction Pct 6.4 % (0.9-11.2); Lymphocytes Percent Auto 47.9 % (18.3-44.2); Mean Corpuscular HGB Conc 33.1 g/dl (32-36); Mean Corpuscular Hemoglobin 28.3 pg (26-34); Mean Corpuscular Volume 85.4 fl (80-100); Mean Platelet Volume 10.2 fl (7.4-10.4); Monocytes Absolute Auto 0.6 K/mm3 (0.1-0.6); Monocytes Percent Auto 5.5 % (2.6-8.5); Neutrophils Absolute Auto 4.6 K/mm3 (1.3-6.7); Neutrophils Percent Auto 44.3 % (45.5-73.1); Platelet Count Result 159 k/mm3 (150-375); Red Blood Count 5.76 M/mm3 (4.6-6.20); Red Cell Distribution Width 14.9 % (11.5-14.5); White Blood Count 10.2 K/mm3 (4.5-10.0)
[2023-07-17 16:27] LABS: Creatinine Urine 117.2 mg/dL
[2023-07-17 16:30] LABS: MALB Creatinine Ratio 10.6 mg/g (0-30); Microalbumin Urine Random 12.4 mg/L (0-16.7)
[2023-07-17 17:28] LABS: LDL Cholesterol Direct 60 mg/dL
[2023-07-17 17:49] LABS: Prostate Specific Antigen 0.9 ng/mL (< OR = 4.0)
[2023-07-17 18:50] LABS: Alanine Aminotransferase 17 U/L (6-50); Albumin Level 4.7 g/dL (3.5-5.1); Alkaline Phosphatase 86 U/L (38-126); Anion Gap 13 mmol/L (8-16); Aspartate Amino Transferase 22 U/L (17-59); Bilirubin,Total 0.9 mg/dL (0.2-1.3); Blood Urea Nitrogen 17 mg/dL (9-20); Carbon Dioxide 21 mmol/L (22-30); Chloride 102 mmol/L (98-107); Cholesterol 116 mg/dL (0-200); Estimated Glomerular Filt Rate > 60; Glucose 157 mg/dL (65-110); HDL Direct 34 mg/dL; Potassium 4.5 mmol/L (3.4-5.0); Sodium 136 mmol/L (137-145); Triglycerides 196 mg/dL (<150)
[2023-07-17 20:39] LABS: Free T4 Free Thyroxine 1.42 ng/mL (0.78-2.19); Vitamin D 25 Hydroxy 31.3 ng/mL
== END 2023-07-17 12:39 | disposition home or self-care (01) ==
PROVIDERS: Nurse Practitioner Family; PCP Family Medicine; Visit Provider Internal Medicine Hematology & Oncology
DX: E03.9 Hypothyroidism, unspecified (principal); E11.69 Type 2 diabetes mellitus with other specified complication; E53.8 Deficiency of other specified B group vitamins; E66.01 Morbid (severe) obesity due to excess calories; E78.5 Hyperlipidemia, unspecified; I10 Essential (primary) hypertension; Z68.41 Body mass index [BMI] 40.0-44.9, adult; Z71.3 Dietary counseling and surveillance; E11.9 Type 2 diabetes mellitus without complications; Z12.5 Encounter for screening for malignant neoplasm of prostate; C83.00 Small cell B-cell lymphoma, unspecified site; R53.83 Other fatigue
CPT/HCPCS: 36415; 80053; 80061; 82043; 82306; 82607; 84153; 84439; 84443; 85025; 85055; G0103

== ENCOUNTER 2024-01-25 13:31 | Outpatient (CLI) | payer MEDICARE, SELFPAY ==
[2024-01-25 14:13] LABS: Basophils Absolute Auto 0.1 K/mm3 (0.0-0.1); Basophils Percent Auto 0.6 % (0.2-1.2); Eosinophils Absolute Auto 0.1 K/mm3 (0-0.3); Eosinophils Percent Auto 0.9 % (0-4.4); Hematocrit 47.4 % (42.0-52.0); Hemoglobin 15.8 g/dL (14.0-18.0); Immature Granulocyte Absolute 0.03 K/mm3 (0.00-0.031); Immature Granulocyte Percent A 0.2 % (0-0.5); Lymphocytes Absolute Auto 6.71 K/mm3 (0.9-3.2); Lymphocytes Percent Auto 52.8 % (18.3-44.2); Mean Corpuscular HGB Conc 33.3 g/dl (32-36); Mean Corpuscular Hemoglobin 29.3 pg (26-34); Mean Corpuscular Volume 87.9 fl (80-100); Mean Platelet Volume 8.8 fl (7.4-10.4); Monocytes Absolute Auto 0.7 K/mm3 (0.1-0.6); Monocytes Percent Auto 5.3 % (2.6-8.5); Neutrophils Absolute Auto 5.1 K/mm3 (1.3-6.7); Neutrophils Percent Auto 40.2 % (45.5-73.1); Platelet Count Result 197 k/mm3 (150-375); Red Blood Count 5.39 M/mm3 (4.6-6.20); Red Cell Distribution Width 13.8 % (11.5-14.5); White Blood Count 12.7 K/mm3 (4.5-10.0)
[2024-01-25 14:21] LABS: Atypical Lymphocytes Present; Platelet Estimate Adequate (Adequate); Schistocytes None Seen (NORMAL)
[2024-01-25 15:15] LABS: Alanine Aminotransferase 17 U/L (6-50); Albumin Level 4.3 g/dL (3.5-5.1); Alkaline Phosphatase 73 U/L (38-126); Anion Gap 7 mmol/L (8-16); Aspartate Amino Transferase 19 U/L (17-59); Bilirubin,Total 0.9 mg/dL (0.2-1.3); Blood Urea Nitrogen 14 mg/dL (9-20); Calcium 9.2 mg/dL (8.4-10.2); Carbon Dioxide 28 mmol/L (22-30); Chloride 103 mmol/L (98-107); Cholesterol 113 mg/dL (0-200); Estimated Glomerular Filt Rate > 60; Glucose 161 mg/dL (65-110); HDL Direct 37 mg/dL; Potassium 4.2 mmol/L (3.4-5.0); Sodium 138 mmol/L (137-145); Triglycerides 156 mg/dL (<150)
[2024-01-25 15:22] LABS: MALB Creatinine Ratio 9.9 mg/g (0-30); Microalbumin Urine Random 7.4 mg/L (0-16.7)
[2024-01-25 15:26] LABS: LDL Cholesterol Direct 68 mg/dL
[2024-01-25 15:32] LABS: Free T4 Free Thyroxine 1.17 ng/mL (0.78-2.19)
== END 2024-01-25 13:32 | disposition home or self-care (01) ==
LOC: ANHLAB 13:35
PROVIDERS: Nurse Practitioner Family; PCP Family Medicine; Visit Provider Internal Medicine Hematology & Oncology
DX: E03.9 Hypothyroidism, unspecified (principal); E11.9 Type 2 diabetes mellitus without complications; E53.8 Deficiency of other specified B group vitamins; E78.5 Hyperlipidemia, unspecified; I10 Essential (primary) hypertension; C83.00 Small cell B-cell lymphoma, unspecified site
CPT/HCPCS: 36415; 80053; 80061; 82043; 82607; 84439; 84443; 85025

== ENCOUNTER 2024-02-01 13:02 | Outpatient (CLI) | payer MEDICARE, SELFPAY ==
[2024-02-01 14:22] LABS: Vitamin D 25 Hydroxy 65.9 ng/mL
== END 2024-02-01 13:03 | disposition home or self-care (01) ==
PROVIDERS: PCP Family Medicine; Visit Provider Nurse Practitioner Family
DX: Z79.899 Other long term (current) drug therapy (principal)
CPT/HCPCS: 36415; 82306

== ENCOUNTER 2024-09-22 10:09 | Emergency (ER) | payer MEDICARE, SELFPAY ==
[2024-09-22 10:19] VITALS: BP 149/93; PULSE 105; RESP 18; TEMP 36.1; O2SAT 99
[2024-09-22 10:23] VITALS: BP 149/93; PULSE 105; RESP 18; TEMP 36.1; O2SAT 99
--- NOTE | 2024-09-22 10:25 | ED.EYEPROB ---
HPI - Eye Problem General Chief complaint: Upper Respiratory Infection Stated complaint: pink eyes Time Seen by Provider: 09/22/24 10:25 Source: patient Mode of arrival: ambulatory Limitations: no limitations History of Present Illness HPI Narrative: 68-year-old male presents with complaint of nasal congestion, sinus drainage, postnasal drainage for 7 day days. Using Coricidin cold and Sinus. Reports congestion continues. Patient also reports redness, drainage, itching to bilateral eyes for 2 days. Has been placing sfix-rlq-hqnluvg moisturizing drops with no relief of symptoms. Reports woke up and eyes crusting this morning. Is concerned for eye infection. Afebrile. All systems reviewed and negative except as noted above. Related Data Home Medications Medication Instructions Recorded Confirmed czedfrvz-pe-ecrfp 300 mcg-K 60 1 tablet PO DAILY 04/16/20 09/22/24 mcg-lycop 600 mcg-lutein 300 mcg tablet (Centrum Silver Men) ferrous sulfate 325 mg (65 mg 325 mg PO DAILY 05/11/21 09/22/24 iron) tablet mecobalamin (vitamin B12) 1,000 1,000 mcg PO DAILY 05/11/21 09/22/24 mcg chewable tablet cholecalciferol (vitamin D3) 50 50 mcg PO DAILY 01/14/24 09/22/24 mcg (2,000 unit) capsule (Vitamin D3) insulin degludec 100 unit/mL (3 24 unit subcut DAILY 01/22/24 09/22/24 mL) subcutaneous pen (Tresiba FlexTouch U-100 insulin) irbesartan 150 mg tablet 150 mg PO DAILY 08/12/24 09/22/24 rosuvastatin 10 mg tablet 10 mg PO DAILY 08/12/24 09/22/24 Allergies Allergy/AdvReac Type Severity Reaction Status Date / Time Penicillins AdvReac Unknown UNKNOWN Verified 09/22/24 10:21 CHILD Review of Systems Review of Systems: CONSTITUTIONAL: Denies fever, chills, or sweats. EYES: Denies visual changes. Reports redness, discharge, itching, crusting. ENT: Reports rhinorrhea, congestion, sinus pressure, ear pressure. Denies sore throat CARDIOVASCULAR: Denies chest pain, palpitations, or edema. RESPIRATORY: Denies cough or dyspnea. GASTROINTESTINAL: Denies abdominal pain, nausea, vomiting, or diarrhea. GENITOURINARY: Denies dysuria or hematuria. SKIN: Denies rash or itching. MUSCULOSKELETAL: Denies back pain, joint pain, or myalgia. NEUROLOGIC: Denies headache, numbness, or weakness. PSYCHIATRIC: Denies anxiety or depression. All other systems reviewed are negative, except as documented in HPI. [facility] Past Medical History Medical History Abnormal CBC Acute bacterial sinusitis Adenomatous colon polyp Anxiety Atypical nevi Diabetes Erectile dysfunction Esophageal ring Hyperlipidemia Hypothyroidism Hypothyroidism determined by thyroid function test Lymphoma, small lymphocytic non hodgkiins lymphoma dx 12/2018 Obesity Shingles Tachycardia Type 2 diabetes mellitus Family History Family History Mother Hypertension Cancer Depression Anxiety Heart disease Thyroid disorder Father Family history of cardiovascular disease Cancer Grandparent Acute myocardial infarction Cancer Alcoholism Heart disease Other Diabetes mellitus Social History Social History Social History: Caffeine-soda Smoking status: Former smoker Tobacco type: smokeless tobacco Smokeless tobacco user: chewing tobacco Second hand tobacco smoke exposure: Yes Additional smoking assessment comments: former chewing tobacco, quit 20 years ago Alcohol intake: current Alcohol use details: rare Substance use: never Substance use type: does not use Do You Feel Safe in your Home?: Yes Lack of Transportation: No Lack of Food: Never True Current Housing: I Have Housing Concerned About Future Housing: No Difficulty Paying Gas/Electric Bills: No Difficulty Paying for Meds: No Currently Unemployed: No Education: Master's Degree or Higher Difficulty w/ Childcare or Family Care: No Living arrangements: with family Occupation/Education: retired Gender identity (if verbalized by the patient): Male Sexual Orientation (if Verbalized by the Patient): Straight or Heterosexual Spiritual care concerns: No Agree to blood products: Yes Comments At time of signature, agree with nursing past medical, surgical, social and family history. There is no relevant family history pertinent to the presenting complaint. Exam Narrative: GENERAL: This is a well-nourished, well-developed patient, in no apparent distress. HEAD: normocephalic, atraumatic. EYES: PERRL. Sclera and conjunctiva erythematous bilaterally. Some mild soft tissue swelling to right eye. Thick mucousy drainage from bilateral eyes. Vision is grossly intact. EARS: External ears normal, auditory canals clear and without drainage, Fluid bilateral TMs, opaque, dull Light reflex no perforation bilaterally. Hearing grossly intact. NOSE: External nose normal with purulent nasal drainage, erythema to bilateral nares, maxillary sinus tenderness on palpation. THROAT: Mucous membranes moist, Erythema postnasal drainage NECK: Neck supple, non-tender without lymphadenopathy, masses or thyromegaly. CARDIOVASCULAR: Regular rate and rhythm without murmurs, gallops, or rubs. RESPIRATORY: Clear to auscultation. Breath sounds equal bilaterally. No wheezes, rales, or rhonchi. SKIN: warm, Dry, intact with no suspicious lesions or rash, good texture and turgor. NEURO: awake, alert, and oriented to person, place and time. There were no obvious focal neurologic abnormalities. EXTREMITIES: No joint tenderness, effusion, or edema noted. Course Course Level of Care: Express Care Visit Vital Signs Vital signs: Vital Signs Temperature 36.1 C L 09/22/24 10:19 Pulse Rate 105 H 09/22/24 10:19 Respiratory Rate 18 09/22/24 10:19 Blood Pressure 149/93 H 09/22/24 10:19 Pulse Oximetry 99 09/22/24 10:19 Oxygen Delivery Room Air 09/22/24 10:19 Temperature 36.1 C L 09/22/24 10:23 Pulse Rate 105 H 09/22/24 10:23 Respiratory Rate 18 09/22/24 10:23 Blood Pressure 149/93 H 09/22/24 10:23 Pulse Oximetry 99 09/22/24 10:23 Oxygen Delivery Room Air 09/22/24 10:23 reviewed MDM - Eye Problem MDM Narrative Medical decision making narrative: will treat patient for bacterial sinusitis due to duration of symptoms exam findings. Patient is aware of diagnosis, understands and agrees to treatment plan. Anticipatory guidance given. Patient agrees to follow-up as directed and is aware of reasons to seek care at the emergency department. Portions of this record may have been created with voice recognition software Differential Diagnosis Differential diagnosis: Likely conjunctivitis Discharge Plan Discharge Clinical Impression: Acute bacterial sinusitis, Acute bacterial conjunctivitis of both eyes Patient Disposition: Home, Self-Care Condition: Stable Instructions: Antibiotic Form, Sinusitis (ED), Conjunctivitis (ED) Additional Instructions: take medications as prescribed. Place antibiotic eyedrops as prescribed. Wash hands before and after placing eyedrops. Continue taking jeoj-oso-shwmxnw Coricidin cold and Sinus. Drink plentyof water and rest. See your doctor if symptoms are not improving. Prescriptions: New doxycycline hyclate 100 mg capsule 100 mg PO BID 7 Days Qty: 14 0RF fluticasone propionate [Flonase Allergy Relief] 50 mcg/actuation spray,suspension 1 spray intranasal BID Qty: 16 0RF Rx Instructions: administer into each nostril ofloxacin 0.3 % drops See Rx Instructions EACH EYE .COMPLEX Qty: 10 0RF Rx Instructions: put 1 drop into affected eye(s) every 4 hr x 2 days, then 1 drop 4 times a day for 7 days No Action ferrous sulfate 325 mg (65 mg iron) tablet 325 mg PO DAILY mecobalamin (vitamin B12) 1,000 mcg tablet,chewable 1,000 mcg PO DAILY pantoprazole 40 mg tablet,delayed release (DR/EC) 40 mg PO QAM Qty: 90 4RF Rx Instructions: 3 month supply if covered by insurance [facility] 300-600-300 mcg tablet 1 tablet PO DAILY cholecalciferol (vitamin D3) [Vitamin D3] 50 mcg (2,000 unit) capsule 50 mcg PO DAILY insulin degludec [Tresiba FlexTouch U-100] 100 unit/mL (3 mL) insulin pen 24 unit subcut DAILY Gvoke PFS 2-Pack Syringe 1 mg/0.2 mL syringe 1 mg subcut Q20M PRN (Reason: hypoglycemia) Qty: 0.4 0RF Rx Instructions: until target blood sugar attained (DME) pen needle, diabetic [BD Marita 2nd Gen Pen Needle] 32 gauge x 5/32 needle See Rx Instructions .Route Qty: 100 4RF Rx Instructions: Use 1 needle to inject insulin daily Jardiance 25 mg tablet 25 mg PO DAILY 90 Days Qty: 90 3RF metformin 500 mg tablet extended release 24 hr 2,000 mg PO DAILY Qty: 360 1RF Ozempic 2 mg/dose (8 mg/3 mL) pen injector 2 mg subcut WEEKLY 90 Days Qty: 9 3RF Hold Instructions: supply issues glimepiride 2 mg tablet See Rx Instructions .ROUTE .COMPLEX Qty: 90 2RF Dose Instruction: TAKE ONE TABLET BY MOUTH DAILY WITH FOOD Rx Instructions: TAKE ONE TABLET BY MOUTH DAILY WITH FOOD (DME) FreeStyle Chris 3 Sensor Device See Rx Instructions .ROUTE .MEDSUPPLY Qty: 6 4RF Rx Instructions: Use to Monitor glucose tadalafil 5 mg tablet 5 mg PO DAILY Qty: 30 5RF levothyroxine 25 mcg tablet 25 mcg PO DAILY Qty: 90 1RF Rx Instructions: take 1 tablet by oral route every day lorazepam 0.5 mg tablet 0.5 mg PO DAILY PRN (Reason: Anxiety) Qty: 30 2RF metoprolol succinate 25 mg tablet extended release 24 hr 25 mg PO DAILY Qty: 90 1RF irbesartan 150 mg tablet 150 mg PO DAILY rosuvastatin 10 mg tablet 10 mg PO DAILY Follow-up/Referrals: Wilfredo Zavala DO [Primary Care Provider] - Time of Disposition: 10:32
== END 2024-09-22 10:37 | disposition home or self-care (01) ==
PROVIDERS: Emergency Provider Nurse Practitioner Family; PCP Family Medicine
DX: J01.90 Acute sinusitis, unspecified (principal); H10.33 Unspecified acute conjunctivitis, bilateral; Z87.891 Personal history of nicotine dependence; E11.9 Type 2 diabetes mellitus without complications; Z79.4 Long term (current) use of insulin; E78.5 Hyperlipidemia, unspecified; E03.9 Hypothyroidism, unspecified; E66.9 Obesity, unspecified; Z68.31 Body mass index [BMI] 31.0-31.9, adult; Z85.72 Personal history of non-Hodgkin lymphomas
CPT/HCPCS: 99213; G0463

== ENCOUNTER 2024-10-07 13:54 | Emergency (ER) | payer MEDICARE, SELFPAY ==
[2024-10-07 14:03] VITALS: BP 126/64; PULSE 100; RESP 16; TEMP 35.9; O2SAT 98
--- NOTE | 2024-10-07 14:07 | ED.EAR ---
HPI - Ear Problem General Chief complaint: Ear Stated complaint: ear pain Time Seen by Provider: 10/07/24 14:10 Source: patient Mode of arrival: ambulatory Limitations: no limitations History of Present Illness HPI Narrative: Hunter is a 68-year-old male patient presenting to the clinic today with complaints of bilateral ear pain, ringing, and pressure. He reports he has developed this after being treated recently for a sinus infection. States he was placed on doxy at that time and has completed the doxy completely. Related Data Home Medications Medication Instructions Recorded Confirmed pofpvalj-mw-bhrrv 300 mcg-K 60 1 tablet PO DAILY 04/16/20 10/07/24 mcg-lycop 600 mcg-lutein 300 mcg tablet (Centrum Silver Men) ferrous sulfate 325 mg (65 mg 325 mg PO DAILY 05/11/21 10/07/24 iron) tablet mecobalamin (vitamin B12) 1,000 1,000 mcg PO DAILY 05/11/21 10/07/24 mcg chewable tablet cholecalciferol (vitamin D3) 50 50 mcg PO DAILY 01/14/24 10/07/24 mcg (2,000 unit) capsule (Vitamin D3) insulin degludec 100 unit/mL (3 24 unit subcut DAILY 01/22/24 10/07/24 mL) subcutaneous pen (Tresiba FlexTouch U-100 insulin) irbesartan 150 mg tablet 150 mg PO DAILY 08/12/24 10/07/24 rosuvastatin 10 mg tablet 10 mg PO DAILY 08/12/24 10/07/24 Allergies Allergy/AdvReac Type Severity Reaction Status Date / Time Penicillins AdvReac Unknown UNKNOWN Verified 10/07/24 14:00 CHILD Review of Systems Review of Systems: Pertinent positives per HPI. Patient denies any fever, chills, rash, headache, visual changes, dizziness, cough, runny nose, sore throat, shortness of breath, chest pain, palpitations, nausea, vomiting, diarrhea, constipation, abdominal pain, or any urinary issues. [facility] Past Medical History Medical History Abnormal CBC Acute bacterial sinusitis Adenomatous colon polyp Anxiety Atypical nevi Diabetes Erectile dysfunction Esophageal ring Hyperlipidemia Hypothyroidism Hypothyroidism determined by thyroid function test Lymphoma, small lymphocytic non hodgkiins lymphoma dx 12/2018 Obesity Shingles Tachycardia Type 2 diabetes mellitus Family History Family History Mother Hypertension Cancer Depression Anxiety Heart disease Thyroid disorder Father Family history of cardiovascular disease Cancer Grandparent Acute myocardial infarction Cancer Alcoholism Heart disease Other Diabetes mellitus Social History Social History Social History: Caffeine-soda Smoking status: Former smoker Tobacco type: smokeless tobacco Smokeless tobacco user: chewing tobacco Second hand tobacco smoke exposure: Yes Additional smoking assessment comments: former chewing tobacco, quit 20 years ago Alcohol intake: current Alcohol use details: rare Substance use: never Substance use type: does not use Do You Feel Safe in your Home?: Yes Lack of Transportation: No Lack of Food: Never True Current Housing: I Have Housing Concerned About Future Housing: No Difficulty Paying Gas/Electric Bills: No Difficulty Paying for Meds: No Currently Unemployed: No Education: Master's Degree or Higher Difficulty w/ Childcare or Family Care: No Living arrangements: with family Occupation/Education: retired Gender identity (if verbalized by the patient): Male Sexual Orientation (if Verbalized by the Patient): Straight or Heterosexual Spiritual care concerns: No Agree to blood products: Yes Comments At the time of my signature, I reviewed and agree with the nursing past medical, surgical, social, and family history. There is no relevant family history pertinent to the patient complaint. Exam Narrative: General: Well-developed, well nourished, in no apparent distress Head: Normocephalic, atraumatic Eyes: Pupils equally round and reactive to light bilaterally, EOM intact, sclera and conjunctive clear, no discharge, lids normal Ears: TMs intact, bulging, red, ear canals ceruminous, used lighted curette to remove cerumen to be able to visualize TMs, no drainage, grossly hearing normal. Nose: Nares patent, no discharge, no inflammation, no sinus tenderness. Mouth: Oropharynx without lesions or masses, good dentition, MMM. Neck: Supple, trachea midline, no enlargement of anterior or posterior cervical nodes, no thyroid masses or goiter palpable. Cardio: Regular rate and rhythm, s1 and s2 normal, no murmur appreciated. Resp: Clear to auscultation bilaterally anteriorly and posteriorly, no rhonchi, rales, wheezing or rubs Course Course Emergency Course: Portions of this record may have been created with voice recognition software. Level of Care: Express Care Visit Vital Signs Vital signs: Vital Signs Temperature 35.9 C L 10/07/24 14:03 Pulse Rate 100 10/07/24 14:03 Respiratory Rate 16 10/07/24 14:03 Blood Pressure 126/64 10/07/24 14:03 Pulse Oximetry 98 10/07/24 14:03 Oxygen Delivery Room Air 10/07/24 14:03 Temperature 35.9 C L 10/07/24 14:03 Pulse Rate 100 10/07/24 14:03 Respiratory Rate 16 10/07/24 14:03 Blood Pressure 126/64 10/07/24 14:03 Pulse Oximetry 98 10/07/24 14:03 Oxygen Delivery Room Air 10/07/24 14:03 Vital signs reviewed Procedures Ear Wax Removal Both Ears: Ear Wax Removal Date: 10/07/24 Results: Re-examined: cerumen removed completely TM Examination: TM(s) erythematous Ear Canal Exam: atraumatic Patient Tolerated Procedure: well and no complications Complications: no problems Technique: ear canal curetted Medical Decision Making MDM Narrative Medical decision making narrative: At the time of visit patient is resting comfortably on the exam table. Patient appears to be nontoxic. Plan: I suspect patient has acute bilateral otitis media. A lighted curette was used to remove wax from bilateral ear canal so I could visualize the tympanic membranes. Prescription for moxifloxacin was sent to the pharmacy. Supportive measures were discussed with the patient and they voiced understanding discharge instructions and agrees to treatment plan. Return precautions reviewed Differential Diagnosis Differential Diagnosis: Otitis media, otitis externa, eustachian tube dysfunction, cerumen impaction, upper respiratory infection, otitis Vital Signs Vital Signs: Vital Signs Temperature 35.9 C L 10/07/24 14:03 Pulse Rate 100 10/07/24 14:03 Respiratory Rate 16 10/07/24 14:03 Blood Pressure 126/64 10/07/24 14:03 Pulse Oximetry 98 10/07/24 14:03 Oxygen Delivery Room Air 10/07/24 14:03 Temperature 35.9 C L 10/07/24 14:03 Pulse Rate 100 10/07/24 14:03 Respiratory Rate 16 10/07/24 14:03 Blood Pressure 126/64 10/07/24 14:03 Pulse Oximetry 98 10/07/24 14:03 Oxygen Delivery Room Air 10/07/24 14:03 Discharge Plan Discharge Clinical Impression: Bilateral otitis media Qualifiers: Otitis media type: suppurative Chronicity: acute Recurrence: non-recurrent Spontaneous tympanic membrane rupture: without spontaneous rupture Qualified Code(s): H66.003 - Acute suppurative otitis media without spontaneous rupture of ear drum, bilateral Patient Disposition: Home, Self-Care Condition: Stable Instructions: Antibiotic Form, Ear Infection (GEN) Additional Instructions: Take moxifloxacin as prescribed Continue current medications as prescribed Increase fluids and stay well hydrated Tylenol/motrin for pain/fever Flonase and OTC antihistamines as directed Vicks vapor rub to open sinuses Sinus rinses for congestion Cepacol spray, cough drops, throat lozenges, warm tea with honey/lemon, gargle salt water to soothe throat BRAT diet for diarrhea Clear liquids x 24 hours then advance as tolerated for nausea/vomiting Go to the ED if you develop a worsening in your condition- high fever not controlled by Tylenol or Motrin, dehydration, weakness, lethargy, shortness of breath, or chest pain. Follow up with your PCP in 3-5 days if symptoms persist. Prescriptions: New moxifloxacin 400 mg tablet 400 mg PO DAILY 7 Days Qty: 7 0RF No Action ofloxacin 0.3 % drops See Rx Instructions EACH EYE .COMPLEX Qty: 10 0RF Rx Instructions: put 1 drop into affected eye(s) every 4 hr x 2 days, then 1 drop 4 times a day for 7 days ferrous sulfate 325 mg (65 mg iron) tablet 325 mg PO DAILY mecobalamin (vitamin B12) 1,000 mcg tablet,chewable 1,000 mcg PO DAILY pantoprazole 40 mg tablet,delayed release (DR/EC) 40 mg PO QAM Qty: 90 4RF Rx Instructions: 3 month supply if covered by insurance [facility] Men 300-600-300 mcg tablet 1 tablet PO DAILY cholecalciferol (vitamin D3) [Vitamin D3] 50 mcg (2,000 unit) capsule 50 mcg PO DAILY insulin degludec [Tresiba FlexTouch U-100] 100 unit/mL (3 mL) insulin pen 24 unit subcut DAILY Gvoke PFS 2-Pack Syringe 1 mg/0.2 mL syringe 1 mg subcut Q20M PRN (Reason: hypoglycemia) Qty: 0.4 0RF Rx Instructions: until target blood sugar attained (DME) pen needle, diabetic [BD Marita 2nd Gen Pen Needle] 32 gauge x 5/32 needle See Rx Instructions .Route Qty: 100 4RF Rx Instructions: Use 1 needle to inject insulin daily Jardiance 25 mg tablet 25 mg PO DAILY 90 Days Qty: 90 3RF metformin 500 mg tablet extended release 24 hr 2,000 mg PO DAILY Qty: 360 1RF Ozempic 2 mg/dose (8 mg/3 mL) pen injector 2 mg subcut WEEKLY 90 Days Qty: 9 3RF Hold Instructions: supply issues glimepiride 2 mg tablet See Rx Instructions .ROUTE .COMPLEX Qty: 90 2RF Dose Instruction: TAKE ONE TABLET BY MOUTH DAILY WITH FOOD Rx Instructions: TAKE ONE TABLET BY MOUTH DAILY WITH FOOD (DME) FreeStyle Chris 3 Sensor Device See Rx Instructions .ROUTE .MEDSUPPLY Qty: 6 4RF Rx Instructions: Use to Monitor glucose tadalafil 5 mg tablet 5 mg PO DAILY Qty: 30 5RF levothyroxine 25 mcg tablet 25 mcg PO DAILY Qty: 90 1RF Rx Instructions: take 1 tablet by oral route every day lorazepam 0.5 mg tablet 0.5 mg PO DAILY PRN (Reason: Anxiety) Qty: 30 2RF metoprolol succinate 25 mg tablet extended release 24 hr 25 mg PO DAILY Qty: 90 1RF irbesartan 150 mg tablet 150 mg PO DAILY rosuvastatin 10 mg tablet 10 mg PO DAILY Follow-up/Referrals: Wilfredo Zavala DO [Primary Care Provider] - Time of Disposition: 14:13 Quality NIHSS Nursing Documentation ED NIHSS nursing documentation: reviewed/agree
== END 2024-10-07 14:18 | disposition home or self-care (01) ==
PROVIDERS: Emergency Provider Nurse Practitioner Family; PCP Family Medicine
DX: H61.23 Impacted cerumen, bilateral (principal); H66.003 Acute suppurative otitis media without spontaneous rupture of ear drum, bilateral; E78.5 Hyperlipidemia, unspecified; E03.9 Hypothyroidism, unspecified; E11.9 Type 2 diabetes mellitus without complications; Z87.891 Personal history of nicotine dependence; Z79.899 Other long term (current) drug therapy; Z79.4 Long term (current) use of insulin
CPT/HCPCS: 69210; 99213; G0463

== ENCOUNTER 2025-01-26 16:08 | Outpatient (CLI) | payer MEDICARE, SELFPAY ==
[2025-01-26 16:48] LABS: Alanine Aminotransferase 17 U/L (6-50); Albumin Level 4.4 g/dL (3.5-5.1); Alkaline Phosphatase 68 U/L (38-126); Anion Gap 8 mmol/L (4-12); Aspartate Amino Transferase 19 U/L (17-59); Bilirubin,Total 0.7 mg/dL (0.2-1.3); Blood Urea Nitrogen 15 mg/dL (9-20); Calcium 8.9 mg/dL (8.4-10.2); Carbon Dioxide 27 mmol/L (22-30); Chloride 103 mmol/L (98-107); Cholesterol 135 mg/dL (0-200); Estimated Glomerular Filt Rate > 60; Glucose 185 mg/dL (65-110); HDL Direct 41 mg/dL; Potassium 4.6 mmol/L (3.4-5.0); Sodium 138 mmol/L (137-145); Triglycerides 219 mg/dL (<150)
[2025-01-26 16:56] LABS: Creatinine Urine 54.9 mg/dL
[2025-01-26 16:59] LABS: LDL Cholesterol Direct 65 mg/dL
[2025-01-26 17:05] LABS: MALB Creatinine Ratio 12.4 mg/g (0-30); Microalbumin Urine Random 6.8 mg/L (0-16.7)
[2025-01-26 17:05] LABS: Free T4 Free Thyroxine 1.19 ng/dL (0.78-2.19); Vitamin D 25 Hydroxy 47.3 ng/mL
--- OUTSIDE RECORDS SUMMARY | 2025-01-26 18:48 | XMS_ITS | Continuity of Care Document ---
Author Organization [facility] Address [address] [place] [address] [place] [address] Phone Care Team Providers Care Mannequin Wig Maker Name Role Phone Santiago OD, Keith Unavailable Unavailable Procedures Procedure Date Eye Exam & Treatment Refraction Eye Exam & Treatment Refraction Eye Exam & Treatment Eye Exam & Treatment Advance Directives Directive Yes / No Effective Date File Name No Information Encounters Encounter Description Practice Location Reason(s) For Visit Diagnoses Date Provider Providers Copied on Encounter [facility], [address] [place] [address] [address], [place], [place], [id number], tel:[phone] [facility] No Information Nov-2 4-201 0 Santiago OD Keith. [address] [facility] , [address], [place], [place], [facility], [place]. tel:[phone] [facility], [address] [place] [address] [address], [place], [place], [id number], [place] tel:[phone] [facility] No Information Nov-1 9-200 9 Santiago OD Keith. [address] [facility] [address] , [address], [place], [place], [facility], [place]. tel:[phone] [facility], [address] [place] [address] [address], [place], [place], [id number], tel:[phone] [facility] No Information Nov-2 0-200 8 Santiago OD Keith. [address] , [address], [place], [address], [place]. tel:[phone] [facility], [address], [place], [place], [id number], [place] tel:[phone] [facility] No Information 0-200 7 Santiago OD Keith. [address] [facility] , [address], [place], [address], [place]. tel:[phone] Family History Family Member Type Diagnosis Age At Onset No Information Payers Payer name Insurance type Covered green party ID Sonja castaneda(s) [facility] CI [id number]. Social History Type Description Quantity Date Captured [...]
--- OUTSIDE RECORDS SUMMARY | 2025-01-26 18:48 | XMS_ITS | Clinical Summary ---
Author Organization [facility] Address [address] [facility] [place] [address] Care Team Providers Care Card Fixer Name Role Phone Betty Turcios MD Primary Care Provi doris Allergies Active Allergy Reactions Criticality Noted Date Comments Penicillins Hives,Rash High 12/23/2018 Medications Irbesartan (AVAPRO) 300 mg tablet 150 mg daily. 9 Active ONE TOUCH DELICA 33 gauge 9 Active LORazepam (ATIVAN) 0.5 mg tablet 8 Active metFORMIN (GLUCOPHAGE XR) 500 mg Extended Release 24 hour tablet 9 Active levothyroxine 25 mcg tablet Take 25 mcg by mouth daily. Active rosuvastatin (CRESTOR) 10 mg tablet Take 10 mg by mouth daily. Active ferrous sulfate 325 mg (65 mg iron) tablet Take 325 mg by mouth daily. Active multivitamins-m inerals-lutein (CENTRUM SILVER) Tablet Take 1 Tablet by mouth daily. Active empagliflozin (Jardiance) 25 mg tablet Take by mouth daily in the morning. Active glipiZIDE (GLUCOTROL XL) 2.5 mg Extended Release 24 hour tablet Take 2.5 mg by mouth daily with breakfast. Active glucagon 1 mg/0.2 mL Auto-Injector Inject by subcutaneous injection. Active insulin degludec (TRESIBA) 100 unit/mL pen syringe Inject by subcutaneous injection. Active mecobalamin, vitamin B12, 1,000 mcg Tablet, Chewable Take by mouth. Activ e pantoprazole (PROTONIX) 40 mg Tablet, Delayed Release (E.C.) Take 40 mg by mouth daily. Active semaglutide (Ozempic) 2 mg/dose (8 mg/3 mL) Pen Injector Inject by subcutaneous injection. Active finasteride-tad alafil 5-5 mg Capsule Take by mouth. Activ e Cholecalciferol , Vitamin D3, 50 mcg (2,000 unit) Capsule Take by mouth. 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 Resolved Problems Problem Noted Date Diagnosed Date Resolved Date Lymphocytosis 12/23/2018 07/03/2019 Encounters Date Type Department Care Team Description 01/07/2025 External Device Data [facility] ABSTRACTION Provider, Abstract 01/07/2025 External Device Data [facility] ABSTRACTION Provider, Abstract 12/17/2024 External Device Data [facility] ABSTRACTION Provider, Abstract from Last 3 Months Social History Tobacco Use Types Packs/Day Years Used Date Smoking Tobacco: Never Smokeless Tobacco: Never Tobacco Cessation:Counseling Given: Not Answered Alcohol Use Standard Drinks/Week Comments Yes 0 (1 standard drink = 0.6 oz pur e alcohol) occasional Sex and Gender Information Value Date Recorded Sex Assigned at Not on file 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 Gender Identity Not on file Sexual Orientation Not on file Last Filed Vital Signs Vital Sign Reading Time Taken Comments Blood Pressure 97/69 02/06/2024 1:06 PM CDT Pulse 99 02/06/2024 1:06 PM CDT Temperature 35.7 C (96.3 F) 02/06/2024 1:06 PM CDT Respiratory Rate 14 02/06/2024 1:06 PM CDT Oxygen Saturation 94% 02/06/2024 1:06 PM CDT Inhaled Oxygen Concentration - - Weight 126.8 kg (279 lb 9.6 oz) 02/06/2024 1:06 PM CDT Height 195.6 cm (6' 5 ) 04/25/2022 11:3 1 AM CDT Body Mass Index 33.16 04/25/2022 11:31 AM CDT Plan of Treatment Upcoming Encounters Date Type Department Care Team (Late st Contact Info) Description 02/05/2025 1:00 PM CDT Office Visit [facility] Oncology and Hematology - [address] [place] [phone] Ben Allen MD [address] [facility] [address] [place] [address] Health Maintenance Due Date Last Done Comments DTAP/TDAP/TD VACCINES (1 - Tdap) 1973 COLORECTAL SCREENING 1999 Colorectal Cancer Screening 1999 FIT-DNA Q 3 years 1999 FIT/FOBT Q 1 year 1999 Flex Sig/CT Colonography Q 5 years 1999 PNEUMOCOCCAL VACCINE 50+ YEARS (1 of 1 - PCV) 10/11/20 04 ZOSTER VACCINE (1 of 2) 2004 RSV VACCINE (60+ or ) (1 - Risk 60-74 years 1-dose series) 2014 Pre-Diabetes and Diabetes Screening 12/11/202112/11 INFLUENZA VACCINE (#1) 2024 Procedures Procedure Name Priority Date/Time Associated Diagnosis Comments HEMOGLOBIN A1C Routine 12/11/2018 from Last 3 Months or Most Recently Relevant to Health Maintenance Results * HEMOGLOBIN A1C (12/11/2018) ABSTRACTED HGB A1C [facility] HEMOGLOBIN A1C 6.3 4.7 - 6.4 % [facility] HEMOGLOBIN A1C [facility] GLUCOSE, MEAN BLOOD [facility] Blood 12/11/2018 Betty Turcios MD CHEMISTRY ORDERABLE S Final Result [facility] CLIA# [id number] [address] [place] [address] from Last 3 Months or Most Recently Relevant to Health Maintenance Insurance AETNA PPO MCR AETNA PPO MCR Care Teams Card Fixer Relationship Specialty Start Date End Date Betty Turcios MD [address] [place] [address] PCP - General Family Practice 12/20/18
== END 2025-01-26 16:09 | disposition home or self-care (01) ==
LOC: ANHLAB 16:14
PROVIDERS: PCP Internal Medicine; Visit Provider Nurse Practitioner Family
DX: E11.69 Type 2 diabetes mellitus with other specified complication (principal); E78.2 Mixed hyperlipidemia; I10 Essential (primary) hypertension; E66.01 Morbid (severe) obesity due to excess calories; Z79.4 Long term (current) use of insulin
CPT/HCPCS: 36415; 80053; 80061; 82043; 82306; 82607; 84439; 84443

== ENCOUNTER 2025-02-04 11:15 | Outpatient (CLI) | payer MEDICARE, SELFPAY ==
[2025-02-04 11:35] LABS: Basophils Absolute Auto 0.1 K/mm3 (0.0-0.1); Basophils Percent Auto 0.4 % (0.2-1.2); Eosinophils Absolute Auto 0.1 K/mm3 (0-0.3); Eosinophils Percent Auto 0.5 % (0-4.4); Hematocrit 48.2 % (42.0-52.0); Hemoglobin 15.8 g/dL (14.0-18.0); Immature Granulocyte Absolute 0.04 K/mm3 (0.00-0.031); Immature Granulocyte Percent A 0.1 % (0-0.5); Lymphocytes Absolute Auto 22.35 K/mm3 (0.9-3.2); Lymphocytes Percent Auto 82.8 % (18.3-44.2); Mean Corpuscular HGB Conc 32.8 g/dl (32-36); Mean Corpuscular Hemoglobin 29.9 pg (26-34); Mean Corpuscular Volume 91.1 fl (80-100); Mean Platelet Volume 8.8 fl (7.4-10.4); Monocytes Absolute Auto 1.3 K/mm3 (0.1-0.6); Monocytes Percent Auto 4.7 % (2.6-8.5); Neutrophils Absolute Auto 3.1 K/mm3 (1.3-6.7); Neutrophils Percent Auto 11.5 % (45.5-73.1); Platelet Count Result 162 k/mm3 (150-375); Red Blood Count 5.29 M/mm3 (4.6-6.20); Red Cell Distribution Width 13.7 % (11.5-14.5)
[2025-02-04 11:39] LABS: Platelet Estimate Adequate (Adequate); Schistocytes None Seen
[2025-02-04 11:42] LABS: Atypical Lymphocytes Present
--- OUTSIDE RECORDS SUMMARY | 2025-02-04 13:09 | XMS_ITS | Clinical Summary ---
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 Gender Identity Not on file Sexual Orientation [...] Description 02/05/2025 1:00 PM CDT Office Visit [facility] Oncology and Hematology - [address] [place] [phone] Ben Allen MD [address] [facility] [address] [place] [address] Health Maintenance Due Date Last [...] Diabetes Screening 12/11/202112/11 INFLUENZA VACCINE (#1) 2024 [place] ([place]) Prev entative Visit/Annual Wellness Visit 11/19/2024 Procedures Procedure Name Priority Date/Time Associated Diagnosis Comments HEMOGLOBIN A1C Routine 12/11/2018 from Last 3 Months or Most Recently Relevant to Health Maintenance Results * HEMOGLOBIN A1C (12/11/2018) ABSTRACTED HGB A1C [facility] HEMOGLOBIN A1C 6.3 4.7 - 6.4 % [facility] HEMOGLOBIN A1C [facility] GLUCOSE, MEAN BLOOD [facility] Blood 12/11/2018 us Betty Turcios MD CHEMISTRY ORDERABLE S Final Result [facility] CLIA# [id number] [address] [place] [address] from Last 3 Months or Most Recently Relevant to Health Maintenance Insurance AETNA PPO MCR AETNA PPO [facility] Care Teams Delimber Operator Relationship Specialty Start Date End Date Betty Turcios MD [address] [place] [id number] PCP - General Family Practice 12/20/18
--- OUTSIDE RECORDS SUMMARY | 2025-02-04 13:09 | XMS_ITS | Continuity of Care Document ---
Author Organization [facility] Address [address] [place] [address] [place] [address] Phone Care Team Providers Care Recovery Engineer Name Role Phone Santiago OD, Keith Unavailable Unavailable Procedures Procedure Date Eye Exam & Treatment Refraction Eye Exam & Treatment Refraction Eye Exam & Treatment Eye Exam & Treatment Advance Directives Directive Yes / No Effective Date File Name No Information Encounters Encounter Description Practice Location Reason(s) For Visit Diagnoses Date Provider Providers Copied on Encounter [facility], [address] [place] [address] [address], [place], [place], [id number], tel:[phone] [facility] No Information Nov-2 4-201 0 Santiago OD Keith. [address] [facility] , [address], [place], [place], [facility], [place]. tel:[phone] [facility], [address] [place] [address] [address], [place], [place], [id number], [place] tel:[phone] [facility] No Information Nov-1 9-200 9 Santiago OD Keith. [address] [facility] , [address], [place], [place], [facility], [place]. tel:[phone] [facility], [address] [place] [address] [address], [place], [place], [id number], tel:[phone] [facility] No Information Nov-2 0-200 8 Santiago OD Keith. [address] , [address], [place], [address], [place]. tel:[phone] [facility], [address], [place], [place], [id number], [place] tel:[phone] [facility] No Information 0-200 7 Santiago OD Keith. [address] [facility] [address] , [address], [place], [address], [place]. tel:[phone] Family History Family Member Type Diagnosis Age At Onset No Information Payers Payer name Insurance type Covered republican ID Sonja castaneda(s) [facility] CI [id number]. Social History Type Description Quantity Date Captured [...]
[2025-02-04 16:56] LABS: Alanine Aminotransferase 20 U/L (6-50); Albumin Level 4.4 g/dL (3.5-5.1); Alkaline Phosphatase 68 U/L (38-126); Anion Gap 9 mmol/L (4-12); Aspartate Amino Transferase 67 U/L (17-59); Bilirubin,Total 0.7 mg/dL (0.2-1.3); Blood Urea Nitrogen 14 mg/dL (9-20); Calcium 8.6 mg/dL (8.4-10.2); Carbon Dioxide 25 mmol/L (22-30); Chloride 103 mmol/L (98-107); Estimated Glomerular Filt Rate > 60; Glucose 148 mg/dL (65-110); Potassium 4.3 mmol/L (3.4-5.0); Sodium 137 mmol/L (137-145)
== END 2025-02-04 11:16 | disposition home or self-care (01) ==
PROVIDERS: PCP Internal Medicine; Visit Provider Internal Medicine Hematology & Oncology
DX: C83.00 Small cell B-cell lymphoma, unspecified site (principal)
CPT/HCPCS: 36415; 80053; 85025

== ENCOUNTER 2025-03-05 00:46 | Day surgery (SDC) | payer MEDICARE, SELFPAY ==
[2025-02-24 15:07] VITALS: BMI 31.4
--- OUTSIDE RECORDS SUMMARY | 2025-03-05 00:49 | XMS_ITS | Clinical Summary ---
Author Organization [facility] Address [address] [place] [address] Care Team Providers Care Taper Printed Circuit Layout Name Role Phone Miguelito Velazquez DO Primary Care Provider Allergies Active Allergy Reactions Criticality Noted Date [...] Active rosuvastatin (CRESTOR) 10 mg tablet Take 5 mg by mouth daily. Active ferrous sulfate [...] Encounters Date Type Department Care Team Description 02/06/[address] [facility] Oncology and Hematology [facility] [address] [place] [address] Ben Allen MD 02/05/2025 1:00 PM CDT Office Visit [facility] Oncology and Hematology [facility] [address] [place] [address] Ben Allen MD Lymphoma, small lymphocytic (CMS/HCC) (Primary Dx) 02/05/[address] 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 Gender Identity Not on file Sexual Orientation Not on file Last Filed Vital Signs Vital Sign Reading Time Taken Comments Blood Pressure 108/62 02/05/2025 1:01 PM CDT Pulse 90 02/05/2025 1:01 PM CDT Temperature 35.7 C (96.2 F) 02/05/2025 1:01 PM CDT Respiratory Rate 15 02/05/2025 1:01 PM CDT Oxygen Saturation 98% 02/05/2025 1:01 PM CDT Inhaled Oxygen Concentration - - Weight 122.5 kg (270 lb) 02/05/2025 1:01 PM CDT Height 195.6 cm (6' 5 ) 04/25/2022 11:31 AM CDT Body Mass Index 32.02 04/25/2022 11:31 AM CDT Plan of Treatment Upcoming Encounters Date Type Department Care Team (Late st Contact Info) Description 02/05/2026 12:00 PM CDT Office Visit [facility] Oncology and Hematology - [address] [facility] [address] [place] [address] Ben Allen MD [address] [facility] [address] [place] [address] Health Maintenance Due Date Last [...] Procedure Name Priority Date/Time Associated Diagnosis Comments CBC WITH DIFFERENTIAL Routine 02/04/2025 4:15 PM CDT CBC WITH DIFFERENTIAL Routine 02/04/2025 3:42 PM CDT COMPREHENSIVE METABOLIC PANEL Routine 02/04/2025 11:21 AM CDT HEMOGLOBIN A1C Routine 12/11/2018 from Last 3 Months or Most Recently Relevant to Health Maintenance Results * CBC WITH DIFFERENTIAL (02/04/2025 4:15 PM CDT) Only the most recent of2 resultswithin the time period is included. Blood us Ben Allen MD HEMATOLOGY ORDERABLES Final Res ult * COMPREHENSIVE METABOLIC PANEL (02/04/2025 11:21 AM CDT) Blood Ben Allen MD CHEMISTRY ORDERABLES Final Resu lt * HEMOGLOBIN A1C (12/11/2018) ABSTRACTED HGB A1C [facility] HEMOGLOBIN A1C 6.3 4.7 - 6.4 % [facility] HEMOGLOBIN A1C [facility] GLUCOSE, MEAN BLOOD [facility] Blood 12/11/2018 us Betty Turcios MD CHEMISTRY ORDERABLE S Final Result [facility] CLIA# [id number] [address] [place] [address] from Last 3 Months or Most Recently Relevant to Health Maintenance Insurance [place] [address] [facility] AETNA PPO MCR Care Teams Taper Printed Circuit Layout Relationship Specialty Start Date End Date Miguelito Velazquez DO [address] [address] PCP - General Internal Medicine 02/05/25
[2025-03-05 09:35] VITALS: BP 131/66; PULSE 84; RESP 18; TEMP 36.1; O2SAT 100; BMI 31.5
[2025-03-05] MEDS: LACTATED RINGERS 1,000 ML 150 ML IV CONT (09:43)
--- NOTE | 2025-03-05 09:45 | SUR.PREOP ---
Glucose 110 per dexcom in pre op.
--- NOTE | 2025-03-05 09:54 | WPDANESEPPF ---
Anes - Initial Pre Proc Eval Procedure: Operation Date: 03/05/25 11:00 Proposed Procedures p Screening Colonoscopy - Sadiq Julio MD Date/Time: 03/05/25 09:54 Surgeon: Sadiq Julio MD Pre Op Diagnosis: personal hx colon polyps Patient Data Age: 69 Gender: M Height: 1.96 m Weight: 120.7 kg Last Vital Signs Temp 36.1 C L 03/05/25 09:35 Pulse 84 03/05/25 09:35 Resp 18 03/05/25 09:35 BP 131/66 03/05/25 09:35 Pulse Ox 100 03/05/25 09:35 O2 Del Method Room Air 03/05/25 09:35 Allergies Allergy/AdvReac Type Severity Reaction Status Date / Time Penicillins AdvReac Unknown UNKNOWN Verified 03/05/25 09:33 CHILD Home Medications ?Medication ?Instructions ?Recorded ?Confirmed ?Type qzhkkliq-ao-iciai 300 mcg-K 60 1 tablet PO DAILY 04/16/20 03/05/25 History mcg-lycop 600 mcg-lutein 300 mcg tablet (Centrum Silver Men) ferrous sulfate 325 mg (65 mg 325 mg PO DAILY 05/11/21 03/05/25 History iron) tablet mecobalamin (vitamin B12) 1,000 1,000 mcg PO DAILY 05/11/21 03/05/25 History mcg chewable tablet glucagon 1 mg/0.2 mL subcutaneous 1 mg (0.2 mL) subcut Q20M PRN 10/04/22 02/24/25 Rx syringe (Gvoke PFS 2-Pack) hypoglycemia #0.4 mL cholecalciferol (vitamin D3) 50 50 mcg PO DAILY 01/14/24 03/05/25 History mcg (2,000 unit) capsule (Vitamin D3) pantoprazole 40 mg tablet,delayed 40 mg PO QAM #90 tabs 06/06/24 03/05/25 Rx release metoprolol succinate 25 mg 25 mg PO DAILY #90 tabs 07/30/24 03/05/25 Rx tablet,extended release 24 hr irbesartan 150 mg tablet 75 mg PO DAILY 08/12/24 03/05/25 History rosuvastatin 10 mg tablet 10 mg PO DAILY 08/12/24 03/05/25 History tadalafil 5 mg tablet 5 mg PO DAILY #30 tabs 12/02/24 04/08/25 Rx lorazepam 0.5 mg tablet 0.5 mg PO DAILY PRN Anxiety #30 10/31/24 02/24/25 Rx tabs glimepiride 2 mg tablet See Rx Instructions .Route 11/03/24 03/05/25 Rx .COMPLEX #90 tabs insulin degludec 100 unit/mL (3 24 unit (0.24 mL) subcut DAILY #30 11/04/24 03/05/25 Rx mL) subcutaneous pen (Tresiba mL FlexTouch U-100 insulin) semaglutide 2 mg/dose (8 mg/3 mL) 2 mg (0.75 mL) subcut WEEKLY 90 11/17/24 03/05/25 Rx subcutaneous pen injector (Ozempic) days #9 mL levothyroxine 25 mcg tablet 25 mcg PO DAILY #90 tabs 12/29/24 03/05/25 Rx pen needle, diabetic 32 gauge x #100 ea 01/29/25 Rx 5/32 blood-glucose sensor (FreeStyle #6 ea 02/06/25 Rx Chris 3 Plus Sensor device) empagliflozin 25 mg tablet 25 mg PO DAILY 90 days #90 tabs 02/16/25 03/05/25 Rx (Jardiance) metformin 500 mg tablet,extended 2,000 mg (4 x 500 mg) PO DAILY 02/17/25 03/05/25 Rx release 24 hr #360 tabs Patient hx anesthesia problems: none Family hx anesthesia problems: none Results Review: All pre-operative results and documents have been reviewed as part of the pre-operative evaluation. [facility] Past Medical History Medical History Esophageal ring Type 2 diabetes mellitus Abnormal CBC Acute bacterial sinusitis Atypical nevi Tachycardia Shingles Erectile dysfunction Hyperlipidemia Hypothyroidism determined by thyroid function test Adenomatous colon polyp Anxiety Hypothyroidism Diabetes Obesity Lymphoma, small lymphocytic non hodgkiins lymphoma dx 12/2018 Family History Family History Mother Hypertension Cancer Depression Anxiety Heart disease Thyroid disorder Father Family history of cardiovascular disease Cancer Grandparent Acute myocardial infarction Cancer Alcoholism Heart disease Other Diabetes mellitus Social History Social History Social History: Caffeine-soda Smoking status: Former smoker Tobacco type: smokeless tobacco Smokeless tobacco user: chewing tobacco Second hand tobacco smoke exposure: Yes Additional smoking assessment comments: former chewing tobacco, quit 20 years ago Alcohol intake: current Alcohol use details: rare Substance use: never Substance use type: does not use Do You Feel Safe in your Home?: Yes Lack of Transportation: No Lack of Food: Never True Current Housing: I Have Housing Concerned About Future Housing: No Difficulty Paying Gas/Electric Bills: No Difficulty Paying for Meds: No Currently Unemployed: No Education: Master's Degree or Higher Difficulty w/ Childcare or Family Care: No Living arrangements: with family Occupation/Education: retired Gender identity (if verbalized by the patient): Male Sexual Orientation (if Verbalized by the Patient): Straight or Heterosexual Spiritual care concerns: No Agree to blood products: Yes Anes - Eval Final PreProcedure Day of Procedure 03/05/25 09:54 Patient weight: obese Heart: regular rate and rhythm Lungs: clear to auscultation Airway: Mallampati scale class II Neurological: alert and oriented Last oral intake: >/= 8 hours ASA classification: III Emergent: no Anesthetic plan: proceed Anesthesia type and monitoring: general GIVS and standard monitoring Results Review: All pre-operative results and documents have been reviewed as part of the pre-operative evaluation. Informed Consent: The patient's anesthetic plan and its attendant risks and benefits were discussed with the patient/family/POA. Questions were solicited and answers provided to the satisfaction of the patient/family/POA.
--- NOTE | 2025-03-05 10:28 | PM.HPGS ---
History of Present Illness History of Present Illness Consent: Risks, benefits, and alternatives have been discussed and questions answered. Patient agrees to proceed with procedure. Chief complaint: personal hx colon polyps Narrative: Hunter Stone is a 69 year old male with history of colon polyps however last colonoscopy 2019 did not have any. Review of Systems Review of Systems: All systems reviewed & are unremarkable except as noted in HPI and below PMFSH Past Medical History Medical History Esophageal ring Type 2 diabetes mellitus Abnormal CBC Acute bacterial sinusitis Atypical nevi Tachycardia Shingles Erectile dysfunction Hyperlipidemia Hypothyroidism determined by thyroid function test Adenomatous colon polyp Anxiety Hypothyroidism Diabetes Obesity Lymphoma, small lymphocytic non hodgkiins lymphoma dx 12/2018 Family History Family History Mother Hypertension Cancer Depression Anxiety Heart disease Thyroid disorder Father Family history of cardiovascular disease Cancer Grandparent Acute myocardial infarction Cancer Alcoholism Heart disease Other Diabetes mellitus Social History Social History Social History: Caffeine-soda Smoking status: Former smoker Tobacco type: smokeless tobacco Smokeless tobacco user: chewing tobacco Second hand tobacco smoke exposure: Yes Additional smoking assessment comments: former chewing tobacco, quit 20 years ago Alcohol intake: current Alcohol use details: rare Substance use: never Substance use type: does not use Do You Feel Safe in your Home?: Yes Lack of Transportation: No Lack of Food: Never True Current Housing: I Have Housing Concerned About Future Housing: No Difficulty Paying Gas/Electric Bills: No Difficulty Paying for Meds: No Currently Unemployed: No Education: Master's Degree or Higher Difficulty w/ Childcare or Family Care: No Living arrangements: with family Occupation/Education: retired Gender identity (if verbalized by the patient): Male Sexual Orientation (if Verbalized by the Patient): Straight or Heterosexual Spiritual care concerns: No Agree to blood products: Yes Meds Home Medications and Allergies Home Medications ?Medication ?Instructions ?Recorded ?Confirmed ?Type punrytur-ju-pvioe 300 mcg-K 60 1 tablet PO DAILY 04/16/20 03/05/25 History mcg-lycop 600 mcg-lutein 300 mcg tablet (Centrum Silver Men) ferrous sulfate 325 mg (65 mg 325 mg PO DAILY 05/11/21 03/05/25 History iron) tablet mecobalamin (vitamin B12) 1,000 1,000 mcg PO DAILY 05/11/21 03/05/25 History mcg chewable tablet glucagon 1 mg/0.2 mL subcutaneous 1 mg (0.2 mL) subcut Q20M PRN 10/04/22 02/24/25 Rx syringe (Gvoke PFS 2-Pack) hypoglycemia #0.4 mL cholecalciferol (vitamin D3) 50 50 mcg PO DAILY 01/14/24 03/05/25 History mcg (2,000 unit) capsule (Vitamin D3) pantoprazole 40 mg tablet,delayed 40 mg PO QAM #90 tabs 06/06/24 03/05/25 Rx release metoprolol succinate 25 mg 25 mg PO DAILY #90 tabs 07/30/24 03/05/25 Rx tablet,extended release 24 hr irbesartan 150 mg tablet 75 mg PO DAILY 08/12/24 03/05/25 History rosuvastatin 10 mg tablet 10 mg PO DAILY 08/12/24 03/05/25 History tadalafil 5 mg tablet 5 mg PO DAILY #30 tabs 10/20/24 02/24/25 Rx lorazepam 0.5 mg tablet 0.5 mg PO DAILY PRN Anxiety #30 10/31/24 02/24/25 Rx tabs glimepiride 2 mg tablet See Rx Instructions .Route 11/03/24 03/05/25 Rx .COMPLEX #90 tabs insulin degludec 100 unit/mL (3 24 unit (0.24 mL) subcut DAILY #30 11/04/24 03/05/25 Rx mL) subcutaneous pen (Tresiba mL FlexTouch U-100 insulin) semaglutide 2 mg/dose (8 mg/3 mL) 2 mg (0.75 mL) subcut WEEKLY 90 11/17/24 03/05/25 Rx subcutaneous pen injector (Ozempic) days #9 mL levothyroxine 25 mcg tablet 25 mcg PO DAILY #90 tabs 12/29/24 03/05/25 Rx pen needle, diabetic 32 gauge x #100 ea 01/29/25 Rx blood-glucose sensor (FreeStyle #6 ea 02/06/25 Rx Chris 3 Plus Sensor device) empagliflozin 25 mg tablet 25 mg PO DAILY 90 days #90 tabs 02/16/25 03/05/25 Rx (Jardiance) metformin 500 mg tablet,extended 2,000 mg (4 x 500 mg) PO DAILY 02/17/25 03/05/25 Rx release 24 hr #360 tabs Allergies Allergy/AdvReac Type Severity Reaction Status Date / Time Penicillins AdvReac Unknown UNKNOWN Verified 03/05/25 09:33 CHILD Vital Signs Vital Signs - 24 hr 03/05/25 09:35 Temperature 97 F L Pulse Rate 84 Respiratory Rate 18 Blood Pressure 131/66 Pulse Oximetry 100 Oxygen Delivery Room Air Exam Const: General: comfortable and no acute distress HENMT: Face/Nose/Sinus: Normal nares present Eyes: General: appearance normal, both eyes and all related structures Neck: Neck: no JVD Resp: Auscultation: clear to auscultation bilaterally Cardio: Rate: regular rate Rhythm: regular rhythm GI: Inspection: non-distended GI Palp: Yes Soft to palpation Skin: General skin exam: normal color Neuro: General: gait normal Speech: normal speech Extrem: General: normal to inspection Psych: Mental Status: mental status grossly normal Assessment and Plan Assessment and plan (1) Adenomatous colon polyp: Qualifiers: Colon location: unspecified part of colon Qualified Code(s): D12.6 - Benign neoplasm of colon, unspecified Code(s): D12.6 - Benign neoplasm of colon, unspecified Status: Acute Assessment and Plan: colonoscopy
[2025-03-05 10:49] VITALS: BP 128/68; PULSE 81; RESP 16; O2SAT 95
[2025-03-05 10:59] VITALS: BP 109/65; PULSE 68; RESP 23; O2SAT 98
--- NOTE | 2025-03-05 11:04 | SUR.PHASEII ---
pt blood glucose is 108 per dexcom
[2025-03-05 11:09] VITALS: BP 121/68; PULSE 68; RESP 26; O2SAT 99
== END 2025-03-05 11:20 | disposition home or self-care (01) ==
PROVIDERS: PCP Internal Medicine; Visit Provider Internal Medicine Gastroenterology
PROC: 0DJD8ZZ Inspection of Lower Intestinal Tract, Via Natural or Artificial Opening Endoscopic (ICD-10-PCS; CPT 45378; principal; 2025-03-05 11:00)
DX: Z12.11 Encounter for screening for malignant neoplasm of colon (principal); D12.3 Benign neoplasm of transverse colon; D12.4 Benign neoplasm of descending colon; K63.5 Polyp of colon; K57.30 Diverticulosis of large intestine without perforation or abscess without bleeding; K64.8 Other hemorrhoids; E11.9 Type 2 diabetes mellitus without complications; Z79.84 Long term (current) use of oral hypoglycemic drugs; Z79.85 Long-term (current) use of injectable non-insulin antidiabetic drugs; Z79.4 Long term (current) use of insulin; Z87.891 Personal history of nicotine dependence; E66.9 Obesity, unspecified; Z68.31 Body mass index [BMI] 31.0-31.9, adult
CPT/HCPCS: 45380; 45385; 88305; J2003; J2704; J7120

== ENCOUNTER 2025-03-31 08:55 | Outpatient (CLI) | payer MEDICARE, SELFPAY ==
--- OUTSIDE RECORDS SUMMARY | 2025-03-31 09:03 | XMS_ITS | Clinical Summary ---
Author Organization [facility] Address [address] [place] [address] Care Team Providers Care Hot Room Attendant Name Role Phone Miguelito Velazquez DO Primary [...] Department Care Team Description 02/06/2025 Orders Only [facility] Oncology and Hematology [facility] [address] [place] [address] Ben Allen MD 02/05/2025 1:00 PM CDT Office Visit [facility] Oncology and Hematology [facility] [address] [place] [address] Ben Allen MD Lymphoma, small lymphocytic (CMS/HCC) (Primary Dx) 02/05/2025 Orders Only [facility] Oncology and Hematology [facility] [address] [place] [address] Ben Allen MD 01/07/2025 External Device Data [...] on file 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 Gender Identity Not on file Sexual Orientation [...] Description 02/05/2026 12:00 PM CDT Office Visit [facility] Oncology and Hematology [facility] [address] [facility] [address] [place] [address] Ben Allen MD [address] [facility] [address] [place] [address] Health Maintenance Due Date Last [...] METABOLIC PANEL (02/04/2025 11:21 AM CDT) Blood us Ben Allen MD CHEMISTRY ORDERABLES Final Resu lt * HEMOGLOBIN A1C (12/11/2018) ABSTRACTED HGB A1C [facility] HEMOGLOBIN A1C 6.3 4.7 - 6.4 % [facility] HEMOGLOBIN A1C [facility] GLUCOSE, MEAN BLOOD [facility] Blood 12/11/2018 us Betty Turcios MD CHEMISTRY ORDERABLE S Final Result [facility] CLIA# [id number] [address] [place] [address] from Last 3 Months or Most Recently Relevant to Health Maintenance Insurance [place] [address] [facility] [place] [address] [facility] Care Teams Hot Room Attendant Relationship Specialty Start Date End Date Miguelito Velazquez DO [address] [address] PCP - General Internal Medicine 02/05/25
--- OUTSIDE RECORDS SUMMARY | 2025-03-31 09:03 | XMS_ITS | Continuity of Care Document ---
Author Organization [facility] Address [id number] [place] [address] [place] [address] Phone Care Team Providers Care Food Production Worker Name Role Phone Santiago OD, Keith Unavailable Unavailable Procedures Procedure Date Eye Exam & Treatment Refraction Eye Exam & Treatment Refraction Eye Exam & Treatment Eye Exam & Treatment Advance Directives Directive Yes / No Effective Date File Name No Information Encounters Encounter Description Practice Location Reason(s) For Visit Diagnoses Date Provider Providers Copied on Encounter [facility], [address] [place] [address] [address], [place], [place], [id number], tel:[phone] [facility] No Information Nov-2 4-201 0 Santiago OD Keith. [address] , [address], [place], [place], [facility], [place]. tel:[phone] [facility], [address] [place] [address] [address], [place], [place], [id number], [place] tel:[phone] [facility] No Information Nov-1 9-200 9 Santiago OD Keith. [address] , [address], [place], [place], [facility], [place]. tel:[phone] [facility], [address] [place] [address] [address], [place], [place], [id number], tel:[phone] [facility] No Information Nov-2 0-200 8 Santiago OD Keith. [address] , [address], [place], [address], [place]. tel:[phone] [facility], [address], [place], [place], [id number], [place] tel:[phone] [facility] No Information 0-200 7 Santiago OD Keith. [address] , [address], [place], [address], [place]. tel:[phone] Family History Family Member Type Diagnosis Age At Onset No Information Payers Payer name Insurance type Covered constitution party ID Sonja castaneda(s) [facility] CI [id number]. Social History Type Description Quantity Date Captured [...]
[2025-03-31 13:12] LABS: Hematocrit 50.6 % (42.0-52.0); Hemoglobin 16.1 g/dL (14.0-18.0); Mean Corpuscular HGB Conc 31.8 g/dl (32-36); Mean Corpuscular Hemoglobin 29.7 pg (26-34); Mean Corpuscular Volume 93.2 fl (80-100); Platelet Count Result 156 k/mm3 (150-375); Red Blood Count 5.43 M/mm3 (4.6-6.20); Red Cell Distribution Width 14.2 % (11.5-14.5); White Blood Count 31.2 K/mm3 (4.5-10.0)
[2025-03-31 14:09] LABS: Band Neutrophils Percent 0 % (0-6); Eosinophils Absolute Manual 0.31 K/mm3 (0.02-0.50); Eosinophils Percent Manual 1 % (0-4); Large Platelets Present; Lymphocytes Absolute Manual 23.71 K/mm3 (1.1-4.5); Lymphocytes Percent Manual 76 % (18-44); Monocytes Absolute Manual 2.18 K/mm3 (0.1-0.90); Monocytes Percent Manual 7 % (3-9); Neutrophils Absolute Manual 4.99 K/mm3 (1.3-6.7); Neutrophils Percent Manual 16 % (46-73); Platelet Estimate Slightly Decreased (Adequate); Schistocytes None Seen; Smudge Cells PRESENT; Total Cells Counted 100
[2025-04-05 13:18] LABS: Testosterone Free 36.4 pg/mL (30.0-135.0); Testosterone Total 257 ng/dL (250-1100)
== END 2025-03-31 08:56 | disposition home or self-care (01) ==
PROVIDERS: PCP Internal Medicine; Visit Provider Internal Medicine
DX: Z12.5 Encounter for screening for malignant neoplasm of prostate (principal); C83.00 Small cell B-cell lymphoma, unspecified site; D72.829 Elevated white blood cell count, unspecified; R53.83 Other fatigue; E29.1 Testicular hypofunction
CPT/HCPCS: 36415; 84153; 84402; 84403; 85025; G0103

== ENCOUNTER 2025-05-29 14:00 | Outpatient (RCR) | payer MEDICARE, SELFPAY ==
--- NOTE | 2025-04-06 16:21 | OPREHPOC ---
Outpatient Therapy Plan of Care This is a Multidisciplinary Plan of Care that may contain components documented by all disciplines (PT, OT, and ST.) PT Problem 1 PT Problem #1 Knowledge Deficit PT Goal 1 Goal / Goal Update *independent with HEP and vestibular management of symptoms Target Visit 8 PT Problem 2 PT Problem #2 Impaired Vestibular System PT Goal 1 Goal / Goal Update pt perform without any vestibular symptoms: 1* rolling R/L in supine 2* supine to sit 3* sit to stand 4* standing 360' turn to R and L x1 rep 5* pick something up off floor Target Visit 8
--- NOTE | 2025-04-06 16:21 | PTOPEVAL1 ---
Assessment and note entered by Sujey Greer, PT Evaluation Information Assessment Status Evaluation ICD-10 Condition Codes (PT) Dizziness and Giddiness R42,BPPV H81.12 Onset about 1 month ago Subjective Information about 1 month ago, sinus issues and had head spinning with lying down and moving head; no falls; have history of dizziness in September-October; saw ENT, did something to his head and it was better; past few weeks it is less; taking meclazine- decreased now to 2x/day; taking nasacort for sinus' wear reading glasses, last eye exam less than 1 year ago; symptoms: head spinning, loss of balance and step to recover- intermittent have ringing in ears increase symptoms: turn head fast, lying down in bed, rolling in bed R/L side Reported Pain Level Pain Score 0: Self Report Assessment PT Clinical Summary Luis has the diagnosis of BPPV. He has had vertigo in the past and the ENT did a maneuver and it was cleared. Dizziness Handicap Index rating of 26% limitation in activity level. He has reduced his meclazine to 2x/day. Medical history includes: multiple meds, HTN, neck pain, diabetes, low thyroid, sinus surgery, sinus issues, ear infections, ringing in ears and monitoring his blood levels for non Hodgkins lymphoma. With the evaluation, he was positive for R anterior/posterior canal BPPV, symptoms cleared with Eply maneuver. Skilled PT services are indicated for vestibular rehab and education for management of his dizziness. Plan of Care Interventions Neuro Re-education,Patient/Caregiver Education, Therapeutic Activities,Therapeutic Exercise PT Services Indicated Yes Treatment Frequency and 1-2x/wk for 8 visits Duration These treatments will address the objective and functional deficits as defined above. The patient will be advanced safely and appropriately in order for the patient to progress towards his/her prior level of function. Additional exercises will be introduced and as well as a comprehensive home exercise program upon discharge, if needed, ?to ensure carryover of functional gains achieved in the clinic. This treatment plan has been reviewed and agreement upon by the patient.
--- NOTE | 2025-05-05 11:00 | PCPTNOTE ---
Pt canceled today, had too much going on. Was offered a rescheduled time and he declined that time and day.
--- NOTE | 2025-05-29 16:21 | OPREHPOC ---
Outpatient Therapy Plan of Care This is a Multidisciplinary Plan of Care that may contain components documented by all disciplines (PT, OT, and ST.) PT Problem 1 PT Problem #1 Knowledge Deficit PT Goal 1 Goal / Goal Update *independent with HEP and vestibular management of symptoms 05-29-25 d/c goal met Target Visit 8 Progress Met PT Problem 2 PT Problem #2 Impaired Vestibular System PT Goal 1 Goal / Goal Update pt perform without any vestibular symptoms: 1* rolling R/L in supine 2* supine to sit 3* sit to stand 4* standing 360' turn to R and L x1 rep 5* pick something up off floor 05-29-25 d/c goals 2,3,4,5 met Target Visit 8 Progress Partially Met
--- NOTE | 2025-05-29 16:21 | PTOPDC ---
Assessment and note entered by Sujey Greer, PT Assessment Status Discharge ICD-10 Condition Codes (PT) Dizziness and Giddiness R42,BPPV H81.12 Onset about 1 month ago Subjective Information pt reports he is doing better and wants to be finished with therapy today. Reported Pain Level Pain Score 0: Self Report Pain Score 0: Self Report Assessment PT Clinical Summary Luis had PT treatment session with JOSE ALFREDO Mckinley today. He requested today be his last day of therapy. Leena and I discussed the patient and d/c is appropriate at this time. He has received 5 PT sessions from April 06 to today The goals were partially achieved. Education completed for safety and he has good awareness and understanding of vestibular education. Discharge PT services. Plan of Care PT Services Indicated No
== END 2025-06-01 10:59 | disposition home or self-care (01) ==
LOC: ANHPT 14:00
PROVIDERS: PCP Internal Medicine; Visit Provider Internal Medicine
DX: H81.12 Benign paroxysmal vertigo, left ear (principal)
CPT/HCPCS: 95992; 97112; 97161; 97530

== ENCOUNTER 2025-07-15 06:33 | Outpatient (CLI) | payer MEDICARE, SELFPAY ==
--- NOTE | ~2025-07-15 | CT_ITS ---
EXAMINATION: CT abdomen pelvis wo/w con DATE: 07/15/2025 07:26 INDICATION: Microscopic hematuria. Lymphoma. TECHNIQUE: Computed tomography (CT) of the abdomen and pelvis was performed without and with 130 cc Omnipaque 350 intravenous contrast. The dose-length product was 2998.43 mGy-cm. Automated exposure control and iterative reconstruction technique were employed. COMPARISON: CT dated 06/30/2019. FINDINGS: Lung bases unremarkable. Heart size normal. No significant pleural or pericardial effusion. There are gallstones. Nonobstructing right nephrolithiasis. The spleen, pancreas, adrenal glands and left kidney are unremarkable. There is retroperitoneal lymphadenopathy, largest in the left periaortic location measuring 3.1 x 2.8 cm. There is additional lymphadenopathy along the iliac chains in the pelvis extending to the obturator locations. No focal lytic or blastic lesions of the osseous structures. Severe lumbar spondylosis. There is mesenteric lymphadenopathy.. Bladder is unremarkable. Fatty infiltration of the liver. The adrenal glands and left kidney are unremarkable. Mildly prominent prostate gland. Nonobstructive bowel gas pattern. Colonic diverticulosis without evidence for diverticulitis. There is no focal soft tissue mass along the posterior margin of the bladder on the right, susp icious for transitional cell carcinoma. IMPRESSION: 1. Developing abdominal and pelvic lymphadenopathy, consistent with lymphoma. 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 Recommend urology consultation. 3: Nonobstructing right nephrolithiasis. 4: Cholelithiasis. Reviewed, dictated and finalized at location O. IMPRESSION: 1. Developing abdominal and pelvic lymphadenopathy, consistent with lymphoma. 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 Recommend urology c onsultation. 3: Nonobstructing right nephrolithiasis. 4: Cholelithiasis.
[2025-07-15 07:07] LABS: Estimated Glomerular Filt Rate > 60
== END 2025-07-15 06:34 | disposition home or self-care (01) ==
PROVIDERS: PCP Internal Medicine; Visit Provider Urology
DX: R31.29 Other microscopic hematuria (principal); K80.20 Calculus of gallbladder without cholecystitis without obstruction; N20.0 Calculus of kidney
CPT/HCPCS: 74178; Q9967

== ENCOUNTER 2025-08-13 12:54 | Outpatient (RCR) | payer MEDICARE, SELFPAY | END 2025-11-02 13:51 | disposition home or self-care (01) | LOC: ANHDMC 12:54 | PROVIDERS: PCP Internal Medicine; Visit Provider Nurse Practitioner Family | DX: E11.69 Type 2 diabetes mellitus with other specified complication (principal); Z71.89 Other specified counseling | CPT/HCPCS: G0108 ==

== ENCOUNTER 2025-08-27 12:25 | Outpatient (CLI) | payer MEDICARE, SELFPAY ==
--- NOTE | 2025-08-27 12:30 | ECG_ITS ---
Test Date: 2025-08-27 12:43:00 Measurements Intervals [place] Rate: 89 P: 49 SC: 184 QRS: 87 QRSD: 97 T: 45 QT: 364 QTc: 445 Interpretive Statements SINUS RHYTHM BASELINE ARTIFACT- II, III NORMAL ECG No previous ECG available for comparison Electronically Signed On 08-27-2025 14:07:20 CDT by Vasu Guerrero D.O.
[2025-08-27 12:56] LABS: Hematocrit 46.4 % (42.0-52.0); Hemoglobin 14.8 g/dL (14.0-18.0)
[2025-08-27 13:17] LABS: Anion Gap 7 mmol/L (4-12); Blood Urea Nitrogen 15 mg/dL (9-20); Calcium 8.9 mg/dL (8.4-10.2); Carbon Dioxide 26 mmol/L (22-30); Chloride 104 mmol/L (98-107); Estimated Glomerular Filt Rate > 60; Glucose 172 mg/dL (65-110); Potassium 4.6 mmol/L (3.4-5.0); Sodium 137 mmol/L (137-145)
== END 2025-08-27 12:26 | disposition home or self-care (01) ==
LOC: ANHSURGERY 12:29
PROVIDERS: Anesthesiology; PCP Internal Medicine; Visit Provider Urology
DX: I10 Essential (primary) hypertension (principal); D64.9 Anemia, unspecified; E11.9 Type 2 diabetes mellitus without complications; Z01.818 Encounter for other preprocedural examination
CPT/HCPCS: 36415; 80048; 85014; 85018; 93005

== ENCOUNTER 2025-08-31 14:37 | Outpatient (CLI) | payer MEDICARE, SELFPAY ==
[2025-08-31 15:29] LABS: Hematocrit 45.5 % (42.0-52.0); Hemoglobin 14.8 g/dL (14.0-18.0); Mean Corpuscular HGB Conc 32.5 g/dl (32-36); Mean Corpuscular Hemoglobin 30.2 pg (26-34); Mean Corpuscular Volume 92.9 fl (80-100); Platelet Count Result 126 k/mm3 (150-375); Red Blood Count 4.90 M/mm3 (4.6-6.20); White Blood Count 37.2 K/mm3 (4.5-10.0)
--- OUTSIDE RECORDS SUMMARY | 2025-08-31 15:39 | XMS_ITS | Clinical Summary ---
Author Organization [facility] Address [address] [facility] [place] [address] Care Team Providers Care Hull Grinder Name Role Phone Miguelito Velazquez DO Primary [...] Encounters Date Type Department Care Team Description 08/04/2025 External Device Data STL ABSTRACTION Provider, Abstract 08/03/2025 Telephone [facility] Oncology and Hematology [facility] [address] [place] [address] Results 07/27/2025 Orders Only [facility] Oncology and Hematology [facility] [address] [place] [address] Ben Allen MD 07/21/2025 External Device Data STL ABSTRACTION Provider, Abstract 07/21/2025 External Device Data STL ABSTRACTION Provider, Abstract 07/08/2025 External Device Data STL ABSTRACTION Provider, Abstract 06/24/2025 External Device Data STL ABSTRACTION Provider, Abstract 06/23/2025 External Device Data STL ABSTRACTION Provider, Abstract 06/03/2025 External Device Data STL ABSTRACTION Provider, Abstract 06/03/2025 External Device Data STL ABSTRACTION Provider, Abstract 06/03/2025 External Device Data STL ABSTRACTION Provider, Abstract [...] on file 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 [address] [place] [address] Ben Allen MD [address] [facility] [address] [place] [address] Health Maintenance Due Date Last [...] and Diabetes Screening 12/11/202112/11 INFLUENZA VACCINE (#1) 2025 Procedures Procedure Name Priority Date/Time Associated Diagnosis Comments CT ABDOMEN PELVIS W CONTRAST Routine 07/15/2025 9:15 AM CDT HEMOGLOBIN A1C Routine 12/11/2018 from Last 3 Months or Most Recently Relevant to Health Maintenance Results * CT ABDOMEN PELVIS W CONTRAST (07/15/2025 9:15 AM CDT) Anatomical Region Laterality Modality Abdomen Computed Tomogra phy us Ben Allen MD CT ORDERABLES Final Result * HEMOGLOBIN A1C (12/11/2018) ABSTRACTED HGB A1C [facility] HEMOGLOBIN A1C 6.3 4.7 - 6.4 % [facility] HEMOGLOBIN A1C [facility] GLUCOSE, MEAN BLOOD [facility] Blood 12/11/2018 us Betty Turcios MD CHEMISTRY ORDERABLE S Final Result [facility] CLIA# [id number] [address] [place] [address] from Last 3 Months or Most Recently Relevant to Health Maintenance Insurance [place] [address] [facility] Care Teams Hull Grinder Relationship Specialty Start Date End Date Miguelito Velazquez DO [address] [address] PCP - General Internal Medicine 02/05/25
[2025-08-31 15:40] LABS: Alanine Aminotransferase 18 U/L (6-50); Albumin Level 4.2 g/dL (3.5-5.1); Alkaline Phosphatase 64 U/L (38-126); Anion Gap 9 mmol/L (4-12); Aspartate Amino Transferase 26 U/L (17-59); Bilirubin,Total 0.7 mg/dL (0.2-1.3); Blood Urea Nitrogen 14 mg/dL (9-20); Calcium 8.7 mg/dL (8.4-10.2); Carbon Dioxide 25 mmol/L (22-30); Chloride 103 mmol/L (98-107); Estimated Glomerular Filt Rate > 60; Glucose 132 mg/dL (65-110); Potassium 4.0 mmol/L (3.4-5.0); Sodium 137 mmol/L (137-145); Total Protein 6.9 g/dL (6.3-8.2)
[2025-08-31 17:17] LABS: Lymphocytes Absolute Manual 33.48 K/mm3 (1.1-4.5); Lymphocytes Percent Manual 90.0 % (18-44); Monocytes Absolute Manual 1.11 K/mm3 (0.1-0.90); Monocytes Percent Manual 3 % (3-9); Neutrophils Percent Manual 7 % (46-73); Total Cells Counted 100
[2025-08-31 17:18] LABS: Schistocytes None Seen
[2025-08-31 17:19] LABS: Band Neutrophils Percent 0 % (0-6); Neutrophils Absolute Manual 2.60 K/mm3 (1.3-6.7)
== END 2025-08-31 14:38 | disposition home or self-care (01) ==
LOC: ANHLAB 14:38
PROVIDERS: PCP Internal Medicine; Visit Provider Clinical Nurse Specialist
DX: D72.820 Lymphocytosis (symptomatic) (principal)
CPT/HCPCS: 36415; 80053; 85025

== ENCOUNTER 2025-09-03 00:52 | Day surgery (SDC) | payer MEDICARE, SELFPAY ==
--- OUTSIDE RECORDS SUMMARY | 2010-10-12 08:00 | XMS_ITS | Continuity of Care Document ---
Author Organization [facility]erg[facility] with [facility] Address [id number] [place] [address] [place] [address] Phone Care Team Providers Care Central Processing Technician Name Role Phone Santiago OD, Keith Unavailable Unavailable Procedures Procedure Date Eye Exam & Treatment Refraction Eye Exam & Treatment Refraction Eye Exam & Treatment Eye Exam & Treatment Advance Directives Directive Yes / No Effective Date File Name No Information Encounters Encounter Description Practice Location Reason(s) For Visit Diagnoses Date Provider Providers Copied on Encounter [facility], [address] [place] [address] [address], [place], [place], [id number], tel:[phone] [facility] No Information Nov-2 4-201 0 Santiago OD Keith. [address] [facility] , [address], [place], [place], [facility], [place]. tel:[phone] [facility], [address] [place] [address] [address], [place], [place], [id number], [place] tel:[phone] [facility] No Information Nov-1 9-200 9 Santiago OD Keith. [address] [facility] , [address], [place], [place], [facility], [place]. tel:[phone] [facility], [address] [place] [address] [address], [place], [place], [id number], tel:[phone] [facility] No Information Nov-2 0-200 8 Santiago OD Keith. [address] , [address], [place], [address], [place]. tel:[phone] [facility], [address], [place], [place], [id number], [place] tel:[phone] [facility] No Information 0-200 7 Santiago OD Keith. [address] [facility] [address] , [address], [place], [address], [place]. tel:[phone] Family History Family Member Type Diagnosis Age At Onset No Information Payers Payer name Insurance type Covered democrat ID Sonja castaneda(s) [facility] CI [id number]. Social History Type Description Quantity Date Captured Comments Sex Male Smoking Status No Information Chief Complaint And Reason For Visit No Information Reason For Referral Reason For Referral No Information History Of Present Illness Encounter Date Complaint History Of Prese nt Illness No Information Functional Status Date Functional Assessmen t No Information Instructions Date Instruction Additional Infor mation No Information Assessments Type Assessment Date No Information Patient Care Teams Name Effective Dates (start - stop) Status Members No Information
[2025-08-26 13:08] VITALS: BMI 32.4
--- NOTE | 2025-08-26 13:45 | PC.NURSE ---
[facility] has started construction of its new state of the art ER which will open Spring 2026. With this, we anticipate parking may be a challenge for some our surgical patients and families. Parking spaces are limited but are available for all Surgical, obstetrics, and ER patients sharing this lot. If you arrive and find you are having a hard time finding a parking space, please note that we understand the challenges, please drive around the hospital and park near Hospital Entrance 1. When you enter this entrance, you can ask a volunteer to direct or take you back to the surgical waiting area to check in. We appreciate everyone?s understanding of these expected challenges while we build for your future. Report to the Outpatient Waiting Room, entrance under the green pavilion located off [address], at time ___9:30AM__ on date __09/03/25___. Planned Procedure Time: ___11:30AM___.? Time changes happen often and if your time is changed the preop area will call you the afternoon before. - You and your visitor will be asked to self-screen and do not enter if you have any COVID symptoms. Please call surgeon if you need to reschedule. - A mask is optional within the hospital at this time. Patients may have clear liquids (water, carbonated beverages, clear teas, apple juice) until 3 hours prior to surgery (8:30AM) with a maximum of 20 ounces. - No food from midnight until time of surgery and no smoking, or chewing tobacco (or any form of nicotine). No chewing gum, candy or mints. Take only the following medications with a SIP of water on the morning of surgery: ____METOPROLOL. MAY TAKE LORAZEPAM NEEDED DO NOT STOP ANY OF YOUR OTHER PRESCRIPTION MEDICATIONS PRIOR TO SURGERY EXCEPT THE FOLLOWING Medications to discontinue per physician __HOLD ALL VITAMINS/SUPPLEMENTS 7 DAYS PRE-OP PER DR DE LA TORRE Date to take last dose 08/26/25 Please no make-up, nail egyptian, hairspray, perfume, deodorant, or body powder the day of surgery.? No jewelry (including any body piercings) or valuables the day of surgery, leave them at home.? Please take a shower or bath the night before, or the morning of, surgery with an antibacterial soap.? Wear comfortable, loose fitting clothing.? - Jewelry must be removed prior to entering the operating room.? Rings and piercings that are not removed may be cut off. - The hospital will not accept responsibility for valuables.? - Please leave all valuables, including medications, at home the day of surgery. If you are going home after surgery, a licensed pizza delivery driver must drive you home.? - NO public transportation without another adult if you receive anesthesia. - We recommend that an adult stay with you for 24 hours following discharge. - We also recommend that you do not drive, make important decision, drink alcoholic beverages, or take any drugs that were not prescribed by your health care provider for at least 24 hours after your discharge time. Follow any additional instructions given to you from your surgeon. Telephone instructions given to ____PATIENT and asked if any additional questions and then verbalized understanding. Patient advised to call surgeon office or pre surgery nurse liaison [phone] if any additional questions.
[2025-09-03] VITALS (11 sets, daily range): BP systolic 108–145; BP diastolic 50–75; PULSE 60–83; RESP 16–20; TEMP 36.1–36.4; O2SAT 94–100
--- NOTE | ~2025-09-03 | XR_ITS ---
EXAMINATION: XR retrograde pyelo w/stent RT DATE: 09/03/2025 11:34 INDICATION: Bladder mass on prior imaging TECHNIQUE: 55 fluoroscopic images of the abdomen and pelvis were obtained during procedure performed by Dr. Molina. Radiologist was not present for the imaging or procedure. The amount of fluoroscopy time used during this procedure was 1.0 minutes. Total DAP was 1.73 mGym^2. COMPARISON: CT dated 07/15/2025 FINDINGS: Migration Specialist images are unremarkable with no evident urolithiasis. Subsequent images demonstrate cannulation and retrograde contrast injection into the right ureter and renal collecting system which appear normal with no filling defects or mucosal irregularities. Final images demonstrate placement of a right intrarenal stent with loops formed in expected position of the right renal pelvis and bladder. IMPRESSION: 1. Fluoroscopy utilized during right retrograde pyelogram with placement of a right internal stent which is in expected position. Reviewed, dictated and finalized at location A. IMPRESSION: 1. Fluoroscopy utilized during right retrograde pyelogram with placement of a r ight internal stent which is in expected position.
--- OUTSIDE RECORDS SUMMARY | 2025-09-03 00:54 | XMS_ITS | Clinical Summary ---
Author Organization [facility] Address [address] [facility] [place] [address] Care Team Providers Care Sales Enablement Manager Name Role Phone Miguelito Velazquez DO Primary [...] Encounters Date Type Department Care Team Description 09/01/2025 External Device Data STL ABSTRACTION Provider, Abstract 08/04/2025 External Device Data STL ABSTRACTION Provider, Abstract 08/03/2025 Telephone [facility] Oncology and Hematology [facility] [address] [place] [address] Results 07/27/2025 Orders Only [facility] Oncology and Hematology [facility] [address] [place] [address] Ben Allen MD 07/21/2025 External Device Data [...] on file 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 Gender Identity Not on file Sexual Orientation [...] Description 02/05/2026 12:00 PM CDT Office Visit [facility] Oncology and Hematology - [place] [address] [facility] [address] [place] [address] Ben Allen MD [address] [facility] [employer] [address] [place] [address] Health Maintenance Due Date Last [...] * HEMOGLOBIN A1C (12/11/2018) ABSTRACTED HGB A1C [facility] HEMOGLOBIN A1C 6.3 4.7 - 6.4 % [facility] HEMOGLOBIN A1C [facility] GLUCOSE, MEAN BLOOD [facility] Blood 12/11/2018 us Betty Turcios MD CHEMISTRY ORDERABLE S Final Result [facility] CLIA# [id number] [address] [place] [address] from Last 3 Months or Most Recently Relevant to Health Maintenance Insurance [facility] Care Teams Sales Enablement Manager Relationship Specialty Start Date End Date Miguelito Velazquez DO [address] [address] PCP - General Internal Medicine 02/05/25
--- OUTSIDE RECORDS SUMMARY | 2025-09-03 00:54 | XMS_ITS | Encounter Summary ---
Author Organization [facility] Address 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 Oncology and Hematology - [place] [address] [place] [address] [facility] [address] [place] [address] Ben Allen MD [address] [facility] [address] [place] [address] documented as of this encounter Visit Diagnoses Not on filedocumented in this encounter Care Teams Inside Sales Director Relationship Specialty Start Date End Date Miguelito Velazquez DO [address] [facility] [address] [place] [address] PCP - General Internal Medicine 02/05/25 documented as of this encounter
--- NOTE | 2025-09-03 06:24 | WPDHPUPDATE1 ---
History and Physical Update Update Date/Time: 09/03/25 06:24 History and Physical has been reviewed, including an updated exam of the patient. There are NO changes in the patient's condition. Risks, benefits, and alternatives have been discussed and questions answered. Patient agrees to proceed with procedure.
[2025-09-03] MEDS: LACTATED RINGERS 1,000 ML 30 ML IV CONT (10:05)
--- NOTE | 2025-09-03 10:14 | WPDANESEPPF ---
Anes - Initial Pre Proc Eval Procedure: Operation Date: 09/03/25 11:15 Proposed Procedures p Trans Urethral Resection Bladder Tumor with Gemcitabine Instillation - Gabino Molina MD s Cystoscopy, Right Ureteroscopy, Possible Right Retrograde Pyelogram with Possible Right Stent Placement - Gabino Molina MD Date/Time: 09/03/25 10:14 Surgeon: Gabino Molina MD Pre Op Diagnosis: Bladder Lesion Patient Data Age: 69 Gender: M Height: 1.96 m Weight: 124 kg Allergies Allergy/AdvReac Type Severity Reaction Status Date / Time No Known Allergies Allergy Verified 09/03/25 10:18 Home Medications ?Medication ?Instructions ?Recorded ?Confirmed ?Type rurejbdu-hj-evvym 300 mcg-K 60 1 tablet PO DAILY 04/16/20 08/26/25 History mcg-lycop 600 mcg-lutein 300 mcg tablet (Centrum Silver Men) ferrous sulfate 325 mg (65 mg 325 mg PO DAILY 05/11/21 08/26/25 History iron) tablet mecobalamin (vitamin B12) 1,000 1,000 mcg PO DAILY 05/11/21 08/26/25 History mcg chewable tablet glucagon 1 mg/0.2 mL subcutaneous 1 mg (0.2 mL) subcut Q20M PRN 10/04/22 08/26/25 Rx syringe (Gvoke PFS 2-Pack) hypoglycemia #0.4 mL cholecalciferol (vitamin D3) 50 50 mcg PO DAILY 01/14/24 08/26/25 History mcg (2,000 unit) capsule (Vitamin D3) blood-glucose sensor (FreeStyle #6 ea 02/06/25 08/26/25 Rx Chris 3 Plus Sensor device) tadalafil 5 mg tablet 5 mg PO DAILY #30 tabs 04/14/25 08/26/25 Rx metoprolol succinate 25 mg 25 mg PO DAILY #90 tabs 05/12/25 08/26/25 Rx tablet,extended release 24 hr lorazepam 0.5 mg tablet 0.5 mg PO DAILY PRN Anxiety #30 05/19/25 08/26/25 Rx tabs empagliflozin 25 mg tablet 25 mg PO DAILY 90 days #90 tabs 06/17/25 08/26/25 Rx (Jardiance) insulin degludec 100 unit/mL (3 24 unit (0.24 mL) subcut DAILY #30 07/01/25 08/26/25 Rx mL) subcutaneous pen (Tresiba mL FlexTouch U-100 insulin) metformin 500 mg tablet,extended 2,000 mg (4 x 500 mg) PO DAILY 07/03/25 08/26/25 Rx release 24 hr #360 tabs levothyroxine 25 mcg tablet 25 mcg PO DAILY #90 tabs 07/08/25 08/26/25 Rx pen needle, diabetic 32 gauge x #100 ea 07/21/25 08/26/25 Rx semaglutide 2 mg/dose (8 mg/3 mL) 2 mg (0.75 mL) subcut WEEKLY 90 07/30/25 08/26/25 Rx subcutaneous pen injector (Ozempic) days #9 mL insulin aspart 5 unit subcut TIDWMEAL #30 mL 08/14/25 08/26/25 Rx (niacinamide)(U-100) 100 unit/mL(3 mL) subcutaneous pen (Fiasp FlexTouch U-100 Insulin) rosuvastatin 10 mg tablet 10 mg PO DAILY #90 tabs 08/24/25 08/26/25 Rx tamsulosin 0.4 mg capsule 0.4 mg PO Q24H 08/24/25 08/26/25 History irbesartan 75 mg tablet 75 mg PO QAM 08/26/25 08/26/25 History pantoprazole 40 mg tablet,delayed 40 mg PO HS 08/26/25 08/26/25 History release Patient hx anesthesia problems: none Family hx anesthesia problems: none Results Review: All pre-operative results and documents have been reviewed as part of the pre-operative evaluation. [facility] Past Medical History Medical History Esophageal ring Type 2 diabetes mellitus Abnormal CBC Acute bacterial sinusitis Atypical nevi Tachycardia Shingles Erectile dysfunction Hyperlipidemia Hypothyroidism determined by thyroid function test Adenomatous colon polyp Anxiety Hypothyroidism Diabetes Obesity Lymphoma, small lymphocytic non hodgkiins lymphoma dx 12/2018 Family History Family History Mother Hypertension Cancer Depression Anxiety Heart disease Thyroid disorder Father Family history of cardiovascular disease Cancer Grandparent Acute myocardial infarction Cancer Alcoholism Heart disease Other Diabetes mellitus Social History Social History (Reviewed 08/24/25 @ 08:31 by MADDY Lopez Social History: Caffeine-soda Smoking status: Never smoker Tobacco type: smokeless tobacco Smokeless tobacco user: chewing tobacco Second hand tobacco smoke exposure: Yes Additional smoking assessment comments: former chewing tobacco, quit 20 years ago Alcohol intake: current Alcohol use details: rare Substance use: never Substance use type: does not use Do You Feel Safe in your Home?: Yes Lack of Transportation: No Lack of Food: Never True Current Housing: I Have Housing Concerned About Future Housing: No Difficulty Paying Gas/Electric Bills: No Difficulty Paying for Meds: No Currently Unemployed: No Education: Master's Degree or Higher Difficulty w/ Childcare or Family Care: No Living arrangements: with family Additional living arrangements comments: Occupation/Education: retired Gender identity (if verbalized by the patient): Male Sexual Orientation (if Verbalized by the Patient): Straight or Heterosexual Spiritual care concerns: No Agree to blood products: Yes Anes - Eval Final PreProcedure Day of Procedure 09/03/25 10:14 Patient weight: obese Heart: regular rate and rhythm Lungs: clear to auscultation Airway: Mallampati scale class II Neurological: alert and oriented Last oral intake: >/= 8 hours ASA classification: III Emergent: no Anesthetic plan: proceed Anesthesia type and monitoring: general LMA and standard monitoring Results Review: All pre-operative results and documents have been reviewed as part of the pre-operative evaluation. Informed Consent: The patient's anesthetic plan and its attendant risks and benefits were discussed with the patient/family/POA. Questions were solicited and answers provided to the satisfaction of the patient/family/POA.
[2025-09-03] MEDS: ceFAZolin 3 GM/D5W 100 ML 100 ML IVPB (10:54)
[2025-09-03] MEDS: LIDOCAINE 2% GEL UROJET 10 ML PKG MUCOUS MEM (11:15)
--- NOTE | 2025-09-03 11:18 | S_PTH ---
PATIENT: Hunter Stone LOC: [facility] U#:[id number] AGE/SX: 69/M ROOM: RE09/03/[address]: Gabino Molina MD : 1955 BED: DIS: 09/03/2025 SPEC #: [id number] RECD: 09/03/25 13:27 STATUS: FAWN REQ #: [id number] OSMIN: 09/03/25 11:[address]: Gabino Molina DEPT: [facility] Surgical RECD BY: Ariella Mo ENTERED: 09/03/25 13:28 SP TYPE: Surgical OTHR DR: Miguelito Velazquez DO Tissues: A - Bladder TURBT Procedures: Hematoxylin and Eosin Stain Gross and Microscopic Level 5
--- NOTE | 2025-09-03 11:35 | W.PM.PROC2 ---
Procedure Note - Detailed Date of Procedure 09/03/25 Pre-op Diagnosis Bladder Lesion Post-op Diagnosis Same Procedure Performed 1. TURBT (medium, 3 cm) 2. Right retrograde pyelography and right ureteroscopy 3. Right ureteral strent placement Surgeon Gabino Molina MD Anesthesia General Findings 1. 3 cm papillary urothelial posterior 2. No evidence of tract urothelial carcinoma Description of Procedure patient is brought to the operative suite was prepped draped in routine sterile fashion while in dorsal lithotomy position after the uneventful induction of a general LMA anesthetic. Cystoscopy was undertaken with a 21 F rigid cystoscope. He has significant prostatic hyperplasia with a moderate-sized median lobe. Prostatic urethra measures about 3 cm. Bladder is moderately trabeculated without diverticular formation. He does have a 3 cm papillary urothelial carcinoma overlying the right ureteral orifice. Remainder of the bladder mucosa is without hyperemia or evidence of additional tumors. 0.035 in glidewire was advanced to the right renal pelvis under fluoroscopy. Transurethral resection of this bladder tumors undertaken with an attempt made to include detrusor muscle for pathological evaluation of invasion. The distal ureter was dilated with an 8 F 10 F dilator. Ureteroscopy was undertaken both with a semi-rigid scope in the distal ureter and a flexible digital scope in the more proximal ureter kidney. There was no evidence of upper tract urothelial carcinoma does have a very small stone midpole calyx but I to. Because of the resection around the orifice opted to place a 6 F variable length stent coil in renal pelvis and distal coil in the bladder. Scopes wires removed and he was taken recovery room in good condition. Drains Yes Packing No Pathology Yes Complications No immediate complications
--- NOTE | 2025-09-03 11:39 | W.PM.PROC2 ---
Procedure Note - Detailed Date of Procedure 09/03/25 Pre-op Diagnosis Bladder Lesion Post-op Diagnosis Same Procedure Performed Gemcitabine installation Surgeon Gabino Molina MD Anesthesia Local Description of Procedure With the patient in the supine position, a 16F Guthrie catheter is placed using sterile technique. Using a protective facemask, gown and double layer of gloves Gemcitabine 2gm in 100cc saline is administered through the catheter/into the bladder. The catheter is then plugged. Patient was instructed to lie supine x20min, then to roll both the left and right x20 min. each. Total dwell time will be 60 min., after which the bladder will be drained and catheter removed. Drains Yes Pathology None sent
[2025-09-03] MEDS: SODIUM CHLORIDE 0.9% IV 23.7 ML, GEMCITABINE HCL 1,000 MG BLADDER ×2 (11:47→11:48)
[2025-09-03] MEDS: ONDANSETRON INJ 4 MG/2 ML VIAL IV PUSH (12:11)
[2025-09-03] MEDS: fentaNYL CITRATE INJ (*CRX) 100 MCG/2 ML VIAL 25 MCG IV PUSH ×4 (12:13→12:36)
[2025-09-03] MEDS: NACL 0.9% IRRIGATION POUR BOTTL 1,000 ML 150 ML IRRIGATION (12:48)
--- NOTE | 2025-09-03 12:55 | SUR.PHASEI ---
1250 - pt turned from back to left side to right side back to back every 20 minutes. pt allegra well.
[2025-09-03] MEDS: oxyCODONE HCL (*CRX) 5 MG TAB IR PO (13:55)
== END 2025-09-03 14:25 | disposition home or self-care (01) ==
PROVIDERS: PCP Internal Medicine; Visit Provider Urology
PROC: 0TBB8ZZ Excision of Bladder, Via Natural or Artificial Opening Endoscopic (ICD-10-PCS; CPT 52332; principal; 2025-09-03 11:15)
PROC: (CPT 52352; 2025-09-03 11:15)
DX: C67.6 Malignant neoplasm of ureteric orifice (principal); N30.20 Other chronic cystitis without hematuria; N40.0 Benign prostatic hyperplasia without lower urinary tract symptoms; R31.29 Other microscopic hematuria; E78.5 Hyperlipidemia, unspecified; E03.9 Hypothyroidism, unspecified; F41.9 Anxiety disorder, unspecified; I10 Essential (primary) hypertension; K21.9 Gastro-esophageal reflux disease without esophagitis; E11.9 Type 2 diabetes mellitus without complications; R00.0 Tachycardia, unspecified; N52.9 Male erectile dysfunction, unspecified; E66.9 Obesity, unspecified; Z68.32 Body mass index [BMI] 32.0-32.9, adult; Z79.84 Long term (current) use of oral hypoglycemic drugs; Z79.85 Long-term (current) use of injectable non-insulin antidiabetic drugs; Z79.4 Long term (current) use of insulin; Z98.890 Other specified postprocedural states; Z87.891 Personal history of nicotine dependence; Z86.0100 Personal history of colon polyps, unspecified; Z85.72 Personal history of non-Hodgkin lymphomas; Z80.42 Family history of malignant neoplasm of prostate; Z82.49 Family history of ischemic heart disease and other diseases of the circulatory system
CPT/HCPCS: 52332; 52235; 51720; 74420; 82948; 88307; A9270; C1769; C2617; J0690; J2003; J2405; J2704; J3010; J7120; J9201; Q9966

== ENCOUNTER 2025-09-16 13:32 | Outpatient (CLI) | payer MEDICARE, SELFPAY ==
--- OUTSIDE RECORDS SUMMARY | 2010-10-12 08:00 | XMS_ITS | Continuity of Care Document ---
Author Organization [facility] Address [id number] [place] [address] [place] [address] Phone Care Team Providers Care Cutter Barrel Drum Name Role Phone Santiago OD, Keith Unavailable Unavailable Procedures Procedure Date Eye Exam & Treatment Refraction Eye Exam & Treatment Refraction Eye Exam & Treatment Eye Exam & Treatment Advance Directives Directive Yes / No Effective Date File Name No Information Encounters Encounter Description Practice Location Reason(s) For Visit Diagnoses Date Provider Providers Copied on Encounter [facility], [address] [place] [address] [address], [place], [place], [id number], tel:[phone] [facility] No Information Nov-2 4-201 0 Santiago OD Keith. [address] [facility] , [address], [place], [place], [facility], [place]. tel:[phone] [facility], [address] [place] [address] [address], [place], [place], [id number], [place] tel:[phone] [facility] No Information Nov-1 9-200 9 Santiago OD Keith. [address] [facility] , [address], [place], [place], [facility], [place]. tel:[phone] [facility], [address] [place] [address] [address], [place], [place], [id number], tel:[phone] [facility] No Information Nov-2 0-200 8 Santiago OD Keith. [address] , [address], [place], [address], [place]. tel:[phone] [facility], [address], [place], [place], [id number], [place] tel:[phone] [facility] No Information 0-200 7 Santiago OD Keith. [address] [facility] [address] , [address], [place], [address], [place]. tel:[phone] Family History Family Member Type Diagnosis Age At Onset No Information Payers Payer name Insurance type Covered constitution party ID Sonja castaneda(s) [facility] CI [id number]. Social History Type Description Quantity Date Captured [...]
[2025-09-16 14:18] LABS: Hematocrit 43.6 % (42.0-52.0); Hemoglobin 13.6 g/dL (14.0-18.0); Immature Granulocyte Percent A 0.1 % (0-0.5); Lymphocytes Absolute Auto 43.38 K/mm3 (0.9-3.2); Mean Corpuscular HGB Conc 31.2 g/dl (32-36); Mean Corpuscular Hemoglobin 30.2 pg (26-34); Mean Corpuscular Volume 96.7 fl (80-100); Nucleated Red Blood Cells Absolute Auto 0.000 K/mm3 (0.0-0.012); Nucleated Red Blood Cells Perc 0.0 % (0.0-0.2); Platelet Count Result 221 k/mm3 (150-375); Red Blood Count 4.51 M/mm3 (4.6-6.20); White Blood Count 47.1 K/mm3 (4.5-10.0)
[2025-09-16 14:21] LABS: Schistocytes None Seen
[2025-09-16 14:26] LABS: Anisocytosis 1+
--- OUTSIDE RECORDS SUMMARY | 2025-09-16 15:02 | XMS_ITS | Encounter Summary ---
Author Organization [facility] [employer] [facility] Address [address] [place] [address] Care Team Providers Care Turbo Generator Oiler Name Role Phone Miguelito Velazquez DO Primary Care Provider Reason for Visit * Reason Onset Date Comments lab order 09/16/2025 Encounter Details Date Type Department Care Team (Late Contact Info) Description 09/16/2025 Telephone [facility] Oncology and Hematology - [place] [address] [place] [address] Ben Allen MD [facility] [employer] [address] [place] [address] lab order Social History Tobacco Use Types Packs/Day Years Used Date Smoking Tobacco: Never Smokeless Tobacco: Never Alcohol Use Standard Drinks/Week Comments Yes 0 (1 standard drink = 0.6 oz pur e alcohol) occasional Sex and Gender Information Value Date Recorded Sex Assigned at Not on file 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 Gender Identity Not on file Sexual Orientation Not on file documented as of this encounter Plan of Treatment Upcoming Encounters Date Type Department Care Team (Late Contact Info) Description 09/18/2025 10:15 AM CDT Office Visit [facility] Oncology and Hematology - [place] [address] [place] [address] Ben Allen MD [address] [employer] [address] [place] [address] 02/05/2026 12:00 PM CDT Office Visit [facility] Oncology and Hematology - [place] [address] [facility] [address] [place] [address] Ben Allen MD [address] [facility] [address] [place] [address] Scheduled Orders Name Type Priority Associated Diagnoses Orde r Schedule PSA,TOTAL AND FREE Lab Routine Lymphoma, small lymphocytic Chronic anemia Expected: 09/16/2025, Expires: 09/16/2026 documented as of this encounter Visit Diagnoses Diagnosis Lymphoma, small lymphocytic- Primary Lymphosarcoma, unspecified site, extranodal and solid organ sites Chronic anemia Anemia, unspecified documented in this encounter Care Teams Turbo Generator Oiler Relationship Specialty Start Date End Date Miguelito Velazquez DO [address] [facility] [address] [place] [address] PCP - General Internal Medicine 02/05/25 documented as of this encounter
--- OUTSIDE RECORDS SUMMARY | 2025-09-16 15:02 | XMS_ITS | Clinical Summary ---
Author Organization [facility] Address [address] [place] [address] Care Team Providers Care Night Coordinator Name Role Phone Miguelito Velazquez DO Primary [...] Encounters Date Type Department Care Team Description 09/16/[address] [facility] Oncology and Hematology [facility] [address] [place] [phone] Ben Allen MD lab order 09/08/[address] [facility] Oncology [facility] Hematology [facility] [address] [place] [address] Ben Allen MD follow up questions 09/04/[address] [facility] Oncology [facility] Hematology [facility] [address] [place] [address] Ben Allen MD 09/01/2025 External Device Data STL ABSTRACTION Provider, Abstract 08/04/2025 External Device Data STL ABSTRACTION Provider, Abstract 08/03/[address] [facility] Oncology [facility] Hematology [facility] [address] [place] [address] Ben Allen MD CT Results 07/27/[address] 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 [address] [place] [address] Ben Allen MD [facility] [address] [place] [phone] 02/05/2026 12:00 PM CDT Office Visit [facility] Oncology and Hematology - [place] [address] [place] [address] Ben Allen MD [facility] [address] [place] [address] Health Maintenance Due Date Last Done Comments DTAP/TDAP/TD VACCINES (1 - Tdap) 1973 COLORECTAL SCREENING 1999 Colorectal Cancer Screening 1999 FIT-DNA Q 3 years 1999 FIT/FOBT Q 1 year 1999 Flex Sig/CT Colonography Q 5 years 1999 PNEUMOCOCCAL VACCINE 50+ YEARS (1 of 1 - PCV) 10/11/20 04 RSV VACCINE (60+ or ) (1 - Risk 50-74 years 1-dose series) 2004 ZOSTER VACCINE (1 of 2) 2004 Pre-Diabetes and Diabetes Screening 12/11/202112/11 INFLUENZA VACCINE [...] * HEMOGLOBIN A1C (12/11/2018) ABSTRACTED HGB A1C [facility] HEMOGLOBIN A1C 6.3 4.7 - 6.4 % [facility] HEMOGLOBIN A1C [facility] GLUCOSE, MEAN BLOOD [facility] Blood 12/11/2018 us Betty Turcios MD CHEMISTRY ORDERABLE S Final Result [facility] CLIA# [id number] [address] [place] [address] from Last 3 Months or Most Recently Relevant to Health Maintenance [place] [address] [employer] [facility] [employer] PPO MCR Care Teams Night Coordinator Relationship Specialty Start Date End Date Miguelito Velazquez DO [address] [phone] PCP - General Internal Medicine 02/05/25
[2025-09-16 16:30] LABS: Alanine Aminotransferase 44 U/L (6-50); Albumin Level 3.9 g/dL (3.5-5.1); Alkaline Phosphatase 70 U/L (38-126); Anion Gap 7 mmol/L (4-12); Aspartate Amino Transferase 87 U/L (17-59); Bilirubin,Total 0.5 mg/dL (0.2-1.3); Blood Urea Nitrogen 15 mg/dL (9-20); Calcium 8.7 mg/dL (8.4-10.2); Carbon Dioxide 26 mmol/L (22-30); Chloride 106 mmol/L (98-107); Estimated Glomerular Filt Rate > 60; Glucose 132 mg/dL (65-110); Potassium 4.3 mmol/L (3.4-5.0); Sodium 139 mmol/L (137-145); Total Protein 6.5 g/dL (6.3-8.2)
== END 2025-09-16 13:33 | disposition home or self-care (01) ==
LOC: ANHLAB 13:32
PROVIDERS: PCP Internal Medicine; Visit Provider Internal Medicine Hematology & Oncology
DX: C83.00 Small cell B-cell lymphoma, unspecified site (principal)
CPT/HCPCS: 36415; 80053; 83615; 85025

== ENCOUNTER 2025-10-14 08:17 | Outpatient (CLI) | payer MEDICARE, SELFPAY ==
--- OUTSIDE RECORDS SUMMARY | 2025-10-12 16:30 | XMS_ITS | Encounter Summary ---
Author Organization [facility] [employer] [facility] Address [address] [place] [address] Care Team Providers Care Film Process Operator Name Role Phone Miguelito Velazquez Primary Care Provider Encounter Details Date Type Department Care Team (Late st Contact Info) Description 10/12/2025 4:30 PM RISK CONTROL OFFICER Telephone Check Up [facility] ([facility] Oncology and Hematology - [place] [address] [place] [address] [address] [place] [address] Ben Allen MD [address] [facility] [address] [place] [address] Social History Tobacco Use Types Packs/Day Years Used Date Smoking Tobacco: Never Smokeless Tobacco: Never Alcohol Use Standard Drinks/Week Comments Yes 0 (1 standard drink = 0.6 oz pur e alcohol) occasional Sex and Gender Information Value Date Recorded Sex Assigned at Not on file Legal Sex Male 2:50 PM RISK CONTROL OFFICER Gender Identity Not on file Sexual Orientation Not on file documented as of this encounter Progress Notes * Ben Allen MD - 10/12/2025 4:42 PM CST HEMATOLOGY / ONCOLOGY PROGRESS NOTE Patient Identification: Name: Hunter Stone Age: 70 y.o. 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 status post flow cytometric analysis done on December 26, 2018 CURRENT TREATMENT Surveillance TREATMENT HISTORY FCR x6 completed June 04, 2019 SUBJECTIVE This is a phone visit with patient. He has no new complaints. Review of system Constitutional: denies fevers, occasional night sweats, denies any tiredness and fatigue HEENT: denies sinus congestion, hearing or vision problems Respiratory: denies cough, dyspnea, wheeze Cardiovascular: denies chest pain, exertional chest pressure/discomfort, nausea, syncope, shortnessof breath GI: denies constipation, diarrhea, dsyphagia, reflux symptoms, vomiting, melena : denies dysuria, frequency, incontinence, urgency Integumentary system: no lymphadenopathy, sweats, flushing Musculoskeletal: denies: myalgia, arthralgia Neurological: denies blurry or disturbed vision, numbness/weakness, dizziness Skin: No lumps, shingles rash resolved 12 point review of system was reviewed Objective: Vital signs in last 24 hours: As per nursing note Exam: This is a phone visit [facility] Labs from October 03, 2019 showed WBC 3.9 hemoglobin 14 platelet 167,000 neutrophils 34% lymphocyte 45% monocytes 16% creatinine 0.9 Labs from January 05 showed WBC 6.6 hemoglobin 13 platelet 250,000 creatinine 1.0 Labs from April 23 showed WBC 5.4 hemoglobin 13.5 platelet 185,000 LDH 507 creatinine 0.9 total bilirubin 0.5 Labs from October 20 showed WBC 6.0 hemoglobin 14 platelet 198,000 creatinine 0.8 LDH 320 Lab from April 23, 2021 showed WBC 7.5 hemoglobin 13.5 platelet 185,000. Labs from October 21 showed creatinine 0.9 LDH 326 WBC 6.9 hemoglobin 13.6 platelet 210,000 Labs from April 21, 2022 showed WC 6.3 hemoglobin 14.1 platelet 223,000 neutrophil 53% lymphocyte 34%creatinine 0.9 LDH 542. Labs from January 22 showed creatinine 0.8 total bilirubin 0.6 WBC 9.1 hemoglobin 15 platelet 265,000 Labs from January 24 showed WBC 12.7 hemoglobin 15.8 platelet 1 97,000 neutrophils 40% lymphocyte 52% creatinine 0.9 B12 773 Labs from February 04 showed WBC 27 hemoglobin 15.8 platelet 162,000 neutrophil 11% lymphocyte 82% creatinine 0.9 total bilirubin 0.7 Labs from September 16 showed WBC 47.1 hemoglobin 13.6 platelet 221,000 neutrophils 4.7% lymphocyte 92% bilirubin 0.5 creatinine 0.9 LDH 135 AST 87 Assessment: Plan: Patient Active Problem List Diagnosis Date Noted Neutropenia 04/26/2020 Chronic anemia 01/05/2020 Lymphoma, small lymphocytic (CMS/HCC) 12/30/2018 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 status post flow cytometric analysis done in December2018. CT scan showed cervical, supraclavicular, right axillary, retroperitoneal and pelvic lymphadenopathy. Completed 6 cycles of FCR June 04, 2019 Patient has occasional night sweats. On my examination there is a small nodularity in the right chest wall. Will order the ultrasound of the breast today. Labs showed increase in the WBC count and mild anemia. We will continue to observe and repeat labs will be done in 4 months. Right breast nodule. Patient had bilateral diagnostic mammography done on September 29, 2025 that showed no evidence of nodules or malignancy. I will plan to see him back in 4 months with repeat labs. Low-grade papillary urothelial carcinoma status post TURBT done on September 03, 2025. Patient will follow-up with Dr. Nam. Yaa. Stable. Type 2 diabetes. He will follow-up with the primary care physician. Follow-up with labs in 4 months 10/12/2025 Ben Allen MD Patient's identity confirmed yes Patient gave verbal consent to have these services billed to their insurance and expressed understanding that co-insurance and deductible may apply: yes Patient was located At home This encounter was completed via two-way synchronous audio only communication. Video technology available to provider, but patient not capable of, or doesn't consent to, use of video. Time spent in discussion with patient: 15 minutes. CONTROL OFFICER documented in this encounter Plan of Treatment Upcoming Encounters Date Type Department Care Team (Late st Contact Info) Description 02/05/2026 12:00 PM CDT Office Visit [facility] Oncology and Hematology - [place] [address] [facility] [address] [place] [address] Ben Allen MD [address] [facility] [address] [place] [address] documented as of this encounter Visit Diagnoses Not on filedocumented in this encounter Care Teams Film Process Operator Relationship Specialty Start Date End Date Miguelito Velazquez DO [address] [facility] [address] [place] [id number] PCP - General Internal Medicine 02/05/25 documented as of this encounter
--- OUTSIDE RECORDS SUMMARY | 2025-10-14 08:23 | XMS_ITS | Clinical Summary ---
Author Organization [facility] Address [address] [facility] [place] [address] Care Team Providers Care Bale Opener Name Role Phone Miguelito Velazquez DO Primary Care Provider Allergies Active Allergy Reactions Criticality Noted Date Comments Penicillins Hives,Rash High 12/23/2018 Medications Irbesartan (AVAPRO) 300 mg tablet 150 mg daily. 12/10/19 19 Active ONE TOUCH DELICA 33 gauge 12/06/19 19 Active LORazepam (ATIVAN) 0.5 mg tablet 11/01/20 18 Active metFORMIN (GLUCOPHAGE XR) 500 mg Extended Release 24 hour tablet 12/13/19 19 Active levothyroxine 25 mcg tablet Take 25 mcg by mouth daily. Active rosuvastatin (CRESTOR) 10 mg tablet Take 5 mg by mouth daily. Active ferrous sulfate 325 mg (65 mg iron) tablet Take 325 mg by mouth daily. Active multivitamins- minerals-lutei n (CENTRUM SILVER) Tablet Take 1 Tablet by mouth daily. Active empagliflozin (Jardiance) 25 mg tablet Take by mouth daily in the morning. Active glucagon 1 mg/0.2 mL Auto-Injector Inject [...] Pen Injector Inject by subcutaneous injection. Active Cholecalcifero l, Vitamin D3, 50 mcg (2,000 unit) Capsule Take by mouth. A ctive Fiasp FlexTouch U-100 Insulin 100 unit/mL (3 mL) Insulin Pen INJECT 5 UNITS UNDER THE SKIN BEFORE MEALS PLUS SLIDING SCALE THREE TIMES DAILY . MAX DAILY DOSE 33 UNITS 08/17/20 25 Active metoprolol succinate (TOPROL XL) 25 mg Extended Release 24 hour tablet Take 25 mg by mouth daily. 08/12/20 25 Active tamsulosin (FLOMAX) 0.4 mg capsule Take 0.4 mg by mouth daily. 08/17/20 25 Active tadalafil (CIALIS) 5 mg tablet Take 5 mg by mouth 1 time daily as needed for Erectile Dysfunction. Active finasteride-ta dalafil 5-5 mg Capsule Take by mouth. 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 Resolved Problems Problem Noted Date Diagnosed Date Resolved Date Lymphocytosis 12/23/2018 07/03/2019 Encounters Date Type Department Care Team Description 10/12/2025 4:30 PM IMMIGRATION CASE MANAGER Telephone Check Up [facility] Oncology and Hematology [facility] [address] [place] [address] Ben Allen MD 09/29/2025 12:00 PM IMMIGRATION CASE MANAGER - 09/29/2025 11:59 PM IMMIGRATION CASE MANAGER Hospital Encounter [facility] [place] [facility] [address] [address] [place] [address] Ben lAlen MD Discharge Disposition: Home or Self Care 09/18/2025 10:15 AM CDT Office Visit [facility] Oncology and Hematology [facility] [address] [place] [phone] Ben Allen MD Nodule of right anterior chest wall (Primary Dx); Lymphoma, small lymphocytic (CMS/HCC) 09/18/2025 Orders Only [facility] Oncology and Hematology [facility] [address] [place] [phone] Ben Allen MD 09/17/2025 Orders Only [facility] Oncology and Hematology - [place] [address] Ben Allen MD 09/16/2025 Telephone [facility] Oncology and Hematology - [place] [address] Ben Allen MD lab order 09/08/2025 Telephone [facility] Oncology and Hematology - [place] [address] Ben Allen MD follow up questions 09/04/2025 Abstract [facility] Oncology and Hematology - [place] [address] [place] [id number] Ben Allen MD 09/01/2025 External Device Data STL ABSTRACTION Provider, Abstract 08/04/2025 External Device Data STL ABSTRACTION Provider, Abstract 08/03/2025 Telephone [facility] Oncology and Hematology - [place] [address] [place] [phone] Results 07/27/2025 Orders Only [facility] Oncology and Hematology - [place] [address] Ben Allen MD 07/21/2025 External Device Data [...] on file Legal Sex Male 2:50 PM IMMIGRATION CASE MANAGER Gender Identity Not on file Sexual Orientation Not on file Last Filed Vital Signs Vital Sign Reading Time Taken Comments Blood Pressure 145/107 09/18/2025 10:09 AM CDT Pulse 119 09/18/2025 10:05 AM CDT Temperature 36.1 C (96.9 F) 09/18/2025 10:05 AM CDT Respiratory Rate 16 09/18/2025 10:0 5 AM CDT Oxygen Saturation 97% 09/18/2025 10: 05 AM CDT Inhaled Oxygen Concentration - - Weight 119.4 kg (263 lb 3.2 oz) 025 10:05 AM CDT Height 195.6 cm (6' 5) 04/25/2022 11:3 1 AM CDT Body Mass Index 31.21 04/25/2022 11:31 AM CDT Plan of Treatment Upcoming Encounters Date Type Department Care Team (Late st Contact Info) Description 02/05/2026 12:00 PM CDT Office Visit [facility] Oncology and Hematology [facility] [address] [facility] [address] [place] [address] Ben Allen MD [address] [facility] [address] [place] [address] Health Maintenance Due Date Last [...] 2004 ZOSTER VACCINE (1 of 2) 2004 INFLUENZA VACCINE (#1) 2025 Procedures Procedure Name Priority Date/Time Associated Diagnosis Comments MAMMO 3D CARROL DIAGNOSTIC BILAT W OR WO CAD Stat 09/29/2025 12:29 PM IMMIGRATION CASE MANAGER Nodule of right anterior chest wall COMPREHENSIVE METABOLIC PANEL Routine 09/16/2025 2:53 PM CDT CBC WITH AUTODIFFERENTIAL Routine 09/16/2025 2:22 PM CDT PATHOLOGY Routine 09/03/2025 9:[address] ABDOMEN PELVIS W CONTRAST Routine 07/15/2025 9:15 AM CDT from Last 3 Months Results * MAMMO 3D CARROL DIAGNOSTIC BILAT W OR WO CAD (09/29/2025 12:29 PM IMMIGRATION CASE MANAGER) Anatomical Region Laterality Modality Breast Bilateral Mammography 09/29/2025 12:2 9 PM IMMIGRATION CASE MANAGER Impressions 09/29/2025 12:33 PM IMMIGRATION CASE MANAGER IMPRESSION: Unremarkable study. Routine screening mammography is recommended in 1 year.. RIGHT BREAST FINAL ASSESSMENT: BI-RADS CATEGORY 1: Negative. LEFT BREAST FINAL ASSESSMENT: BI-RADS CATEGORY 1: Negative. DICTATION LOCATION: [facility] Narrative 09/29/2025 12:33 PM IMMIGRATION CASE MANAGER EXAMINATION: BILATERAL DIAGNOSTIC DIGITAL MAMMOGRAPHY WITH TOMOSYNTHESIS AND CAD DATE: 09/29/2025 12:29 PM HISTORY: Male patient complains of the palpable area in the right subareolar region. COMPARISON: Baseline study. TECHNIQUE: A bilateral diagnostic mammogram was performed. Low-dose full-field digital breast tomosynthesis examination was performed with 2D and 3D acquisitions. Examination is read in conjunction with computer aided detection. BREAST COMPOSITION: The breasts are almost entirely fatty. MAMMOGRAPHIC FINDINGS: There are no suspicious masses, suspicious calcifications, or other suspicious findings in either breast. No evidence of gynecomastia is seen. Computer aided detection was used in the interpretation of this examination. us Ben Allen MD MAMMO ORDERABLES Final Result * COMPREHENSIVE METABOLIC PANEL (09/16/2025 2:53 PM CDT) Blood us Ben Allen MD CHEMISTRY ORDERABLES Final Resu lt * CBC WITH AUTODIFFERENTIAL (09/16/2025 2:22 PM CDT) Blood us Ben Allen MD HEMATOLOGY ORDERABLES Final Res ult * PATHOLOGY (09/03/2025 9:49 AM CDT) Tissue us Ben Allen MD PATHOLOGY/CYTOLOGY ORDERABLES F inal Result * CT ABDOMEN PELVIS W CONTRAST (07/15/2025 9:15 AM CDT) Anatomical Region Laterality Modality Abdomen Computed Tomogra phy Ben Allen MD CT ORDERABLES Final Result from Last 3 Months Insurance [employer] PPO [facility] [employer] PPO MCR Care Teams Bale Opener Relationship Specialty Start Date End Date Miguelito Velazquez DO [address] [facility] [address] [place] [address] PCP - General Internal Medicine 02/05/25
[2025-10-14 09:35] LABS: MALB Creatinine Ratio 12.3 mg/g (0-30)
[2025-10-14 09:55] LABS: Free T4 Free Thyroxine 1.29 ng/dL (0.78-2.19)
[2025-10-14 12:08] LABS: Alanine Aminotransferase 17 U/L (6-50); Albumin Level 4.4 g/dL (3.5-5.1); Alkaline Phosphatase 64 U/L (38-126); Anion Gap 4 mmol/L (4-12); Aspartate Amino Transferase 21 U/L (17-59); Bilirubin,Total 0.7 mg/dL (0.2-1.3); Blood Urea Nitrogen 14 mg/dL (9-20); Calcium 9.3 mg/dL (8.4-10.2); Carbon Dioxide 29 mmol/L (22-30); Chloride 106 mmol/L (98-107); Cholesterol 149 mg/dL (0-200); Estimated Glomerular Filt Rate > 60; Glucose 163 mg/dL (65-110); HDL Direct 38 mg/dL; Potassium 4.3 mmol/L (3.4-5.0); Sodium 139 mmol/L (137-145); Total Protein 6.9 g/dL (6.3-8.2); Triglycerides 243 mg/dL (<150)
[2025-10-14 12:37] LABS: Thyroid Stimulating Hormone 3.970 uIU/mL (0.465-4.680)
[2025-10-16 14:34] LABS: Vitamin B12 271.0 pg/mL (239-931)
[2025-10-17 22:07] LABS: Free Testosterone (Direct) 4.5 pg/mL (6.6-18.1)
== END 2025-10-14 08:18 | disposition home or self-care (01) ==
PROVIDERS: PCP Internal Medicine; Visit Provider Nurse Practitioner Family
DX: E03.9 Hypothyroidism, unspecified (principal); E78.2 Mixed hyperlipidemia; I10 Essential (primary) hypertension; E11.69 Type 2 diabetes mellitus with other specified complication; E66.01 Morbid (severe) obesity due to excess calories; Z79.4 Long term (current) use of insulin; E53.8 Deficiency of other specified B group vitamins
CPT/HCPCS: 36415; 80053; 80061; 82043; 82306; 82607; 84270; 84402; 84403; 84439; 84443